=== PATIENT | female | born 1965 | race Caucasian/White ===

== ENCOUNTER 2022-11-07 17:01 | Emergency (ER) | payer MEDICARE, MEDICAID, SELFPAY ==
--- NOTE | 2022-11-07 17:56 | ED.ABDPAIN ---
HPI - Abdominal Pain General Stated Complaint: abd pain Related Data Allergies Allergy/AdvReac Type Severity Reaction Status Date / Time morphine [MORPHINE] Allergy Intermediate INVOLUNTARY Unverified 05/21/20 14:46 SPASMS
== END 2022-11-07 18:25 | disposition left against medical advice (07) ==
PROVIDERS: Emergency Provider Emergency Medicine; PCP Physician Assistant
DX: R10.9 Unspecified abdominal pain (principal)

== ENCOUNTER 2023-07-15 10:05 | Emergency (ER) | payer MEDICARE, MEDICAID, SELFPAY ==
--- NOTE | ~2023-07-15 | CT_ITS ---
EXAMINATION: CT ABDOMEN AND PELVIS WITHOUT CONTRAST CLINICAL INFORMATION: Flank pain. COMPARISON: None available. TECHNIQUE: Multidetector volumetric imaging was performed from the superior aspect of the liver through the pubic symphysis. Sagittal and coronal reformatted images were obtained on the technologist's workstation. This CT examination was performed using dose optimization techniques as appropriate, variously including the following: *Automated exposure control *Adjustment of mA and/or kV according to patient size (this includes techniques or standardized protocols for targeted exams where dose is matched to indication/reason for exam; i.e. extremities or head) *Use of iterative reconstruction technique DLP: 536 mGy-cm FINDINGS: LUNG BASES: The lung bases appear clear, with no evidence of inflammation or nodules. LIVER, GALLBLADDER, AND BILIARY TREE: The liver appears unremarkable in size, shape, and attenuation. No focal hepatic lesion or biliary ductal dilatation is appreciated. Unremarkable appearance of the gallbladder. PANCREAS: Unremarkable. SPLEEN: Spleen not visualized. Approximately 2 cm or less, homogeneous soft tissue density structures located roughly in the expected location of the splenic bed. ADRENAL GLANDS: Unremarkable KIDNEYS AND URETERS: The kidneys appear unremarkable in size, shape, and attenuation. No hydronephrosis, hydroureter, or calculi seen. BLADDER: Unremarkable GASTROINTESTINAL TRACT: Scattered colonic diverticula. Question mild induration of fat in the region of a sigmoid diverticulum (image 60, coronal series 7). No abscess identified. Normal-appearing distal ileum and vermiform appendix. PERITONEAL CAVITY: No free intracranial fluid or air identified. ABDOMINAL WALL: Approximately 1.2 cm left gluteal soft tissue density structure (image 69, series 3), possibly related to prior hypodermic injection. No significant hernia is appreciated. LYMPH NODES: No evidence of adenopathy by size criteria. VASCULAR: Unremarkable PELVIC VISCERA: Approximately 2.5 cm subserosal leiomyoma at the uterine fundus (image 73, series 3). OSSEOUS STRUCTURES: Bilateral spondylolysis at L5-S1 without evidence of spondylolisthesis. CT/CT abdomen pelvis wo IV con IMPRESSION: No evidence of urinary tract stone or hydronephrosis. Scattered colonic diverticula. Question mild induration of fat in the region of a sigmoid diverticulum, equivocal. Cannot confirm or exclude early or mild diverticulitis. Suspect splenosis. Additional findings, as above.
[2023-07-15 10:11] VITALS: BP 95/67; PULSE 87; RESP 17; TEMP 36.5; O2SAT 96; BMI 29.5
[2023-07-15 10:27] LABS: MANUAL DIFF FLAG NO
[2023-07-15 10:33] LABS: Appearance Urine Clear; Basophils Absolute Auto 0.1 X10*3/uL (0.0-0.2); Basophils Percent Auto 0.4 % (0-2); Color Urine Yellow; Eosinophils Absolute Auto 0.1 X10*3/uL (0.0-0.4); Eosinophils Percent Auto 0.4 % (0-4); Glucose Urine UA Negative (Negative); Hematocrit 40.7 % (37.0-47.0); Hemoglobin 13.2 g/dl (12.0-16.0); Imm Gran Abs Auto 0.04 X10*3/uL (0.00-0.03); Imm Gran Pct Auto 0.3 % (0.0-0.4); Leukocyte Esterase Urine Large (3+) (Negative); Lymphocytes Absolute Auto 3.3 X10*3/uL (1.2-4.9); Lymphocytes Percent Auto 22.9 % (20-40); Mean Corpuscular HGB Conc 32.4 g/dl (31.0-35.0); Mean Corpuscular Hemoglobin 29.7 pg (27.0-33.0); Mean Corpuscular Volume 91.7 fL (80.0-98.0); Mean Platelet Volume 11.5 fL (9.4-12.3); Monocytes Absolute Auto 1.4 X10*3/uL (0.1-1.2); Monocytes Percent Auto 9.8 % (2-11); Neutrophils Absolute Auto 9.4 x10*3/uL (2.0-8.3); Neutrophils Percent Auto 66.2 % (45-73); Nitrite Urine Negative (Negative); Platelet Count 301 X10*3/uL (160-400); Red Blood Count 4.44 X10*6/uL (4.20-5.50); Red Cell Distribution Width 14.6 % (11.0-16.0); UMIC TRIGGER UACC YES; Urine Blood Moderate (2+) (Negative); Urine Ketones Negative (Negative); Urine Protein Negative (Neg-Trace); White Blood Count 14.2 X10*3/uL (4.8-10.8)
[2023-07-15 10:35] LABS: Bacteria Urine None Seen (None Seen); Squamous Epithelial Cell Urine 0-2 /HPF (0-2); UACC Culture Trigger YES; WBC Urine >50 /HPF (0-5)
[2023-07-15 11:02] LABS: Alanine Aminotransferase 40 U/L (0-31); Albumin Level 4.1 g/dL (3.5-5.0); Alkaline Phosphatase 72 U/L (39-117); Anion Gap 10 (12-20); Aspartate Amino Transferase 39 U/L (5-31); Bilirubin Direct < 0.2 mg/dL (0.0-0.5); Bilirubin Total 0.2 mg/dL (0.0-1.0); Blood Urea Nitrogen 8 mg/dL (9-16); Calcium 10.4 mg/dL (8.4-10.2); Carbon Dioxide 25 mmol/L (22-29); Chloride 104 mmol/L (96-108); Creatinine Clr Calc Pharmacy 77.4; Estimated Glomerular Filt Rate > 60; Glucose Random 118 mg/dL (60-115); Lipase 38 U/L (8-78); Potassium 4.3 mmol/L (3.3-5.1); Sodium 135 mmol/L (135-145); Total Protein 7.2 g/dL (6.5-8.0)
--- NOTE | 2023-07-15 11:03 | ED.GENADULT ---
HPI - General Adult General Chief complaint: General Medical Stated complaint: vomiting Time Seen by Provider: 07/15/23 11:03 Source: patient Mode of arrival: ambulatory Limitations: no limitations History of Present Illness HPI narrative: Patient is a 57 year old assigned female at with no reported medical history presenting to the emergency department today with low back pain, nausea, vomiting, and diarrhea. Patient states that 3 days ago she started having low back pain, nausea, vomiting and diarrhea. Patient denies any dizziness, lightheadedness, abdominal pain, fever, chills, blurry vision, double vision, loss of vision, chest pain, difficulty breathing, shortness of breath, night sweats, pain with urination, increased urinary frequency, increased urinary urgency, blood in her urine or stool, syncope or a near syncopal episode, recent trauma or falls, bowel incontinence, bladder incontinence, bowel retention, bladder retention, or any other complaints at this time. Onset (ago): day(s) (3) Location: back Severity: mild Severity scale (1-10): 4 Quality: aching and dull Pain Consistency: constant Relieving factors: none Exacerbating factors: none Associated symptoms: nausea/vomiting Treatments prior to arrival: none Related Data Previous Rx's Medication Instructions Recorded amoxicillin 875 mg-potassium 1 tab PO BID 7 days #14 tabs 07/15/23 clavulanate 125 mg tablet loperamide 2 mg capsule (Imodium 2 mg PO QID PRN loose stool #7 caps 07/15/23 A-D) Allergies Allergy/AdvReac Type Severity Reaction Status Date / Time morphine [MORPHINE] Allergy Intermediate INVOLUNTARY Verified 07/15/23 11:58 SPASMS Review of Systems Constitutional: Constitutional: Reports no additional constitutional complaints, Denies chills, Denies fever(s) and Denies night sweats Eyes: Eyes: Reports no additional eye complaints, Denies blurry vision, Denies change in vision, Denies diplopia, Denies eye discharge, Denies loss of vision and Denies eye pain ENT: Denies dizziness Cardiovascular: Cardiovascular: Reports no additional cardiovascular complaints, Denies chest pain, Denies lightheadedness, Denies Loss of Consciousness and Denies dyspnea Respiratory: Respiratory: Reports no additional respiratory complaints and Denies dyspnea Gastrointestinal: Gastrointestinal: Reports no additional gastrointestinal complaints, Denies abdominal pain, Denies melena, Denies hematochezia, Denies change in bowel habits, Denies change in stool character, Reports diarrhea, Reports nausea and Reports vomiting Genitourinary: Genitourinary: Denies hematuria, Denies urinary frequency, Denies dysuria, Denies urinary incontinence, Denies urinary hesitancy and Denies urinary urgency Musculoskeletal: Musculoskeletal: Reports no additional musculoskeletal complaints, Reports back pain, Denies numbness and Denies tingling Neurologic: Denies dizziness, Denies loss of vision, Denies numbness and Denies tingling Psychiatric: Psychiatric: Reports no additional psychiatric complaints Endocrine: Endocrine: Reports no additional endocrine complaints Hematologic/Lymphatic: Hematologic/Lymphatic: Reports no additional hematologic/lymphatic complaints Allergic/Immunologic: Allergic/Immunologic: Reports no additional allergic/immunologic complaints PMFSH Past Medical History Attestation statement: The following information was validated with the patient. Source: old records reviewed and nursing notes reviewed Social History Social History Smoked in Last 30 Days: Yes Use of substances other than those prescribed or required for medical reasons: No Advance Directives: No Advance Directives Information Provided: No Patient : No Physical Exam ED Vital Signs: Vital Signs - 24 hr 07/15/23 10:11 07/15/23 12:56 Temperature 97.7 F 98.9 F Pulse Rate 87 75 Respiratory Rate 17 18 Blood Pressure 95/67 110/68 Pulse Oximetry 96 100 Oxygen Delivery Method Room Air Room Air BMI result Body Mass Index 29.5 Const General: cooperative, no acute distress, alert and awake Nutritional Appearance: well nourished Orientation/consciousness: patient oriented x3 Limitations: no limitations [facility] Head: Yes normal to inspection and Yes atraumatic Ears: hearing grossly normal bilaterally and external ears normal General nose exam: Normal external nose present, no nasal discharge noted and no epistaxis Face and sinus: Yes normal facial exam, No abrasion and No laceration Mouth: Normal oral and palatal mucosa present, no drooling and no muffled voice Eyes General: appearance normal, both eyes and all related structures Periorbital: periorbital findings normal Eyelids: Yes eyelids normal Conjunctivae: conjunctivae normal Pupils: Equal, round and reactive pupils present EOM: EOMs intact bilaterally Neck Neck: Yes normal visual inspection, Yes full ROM and Yes no lymphadenopathy Chest Chest palpation & inspection: normal inspection of the chest Resp Effort & Inspection: normal respiratory effort and able to speak in complete sentences Auscultation: clear to auscultation bilaterally Cardio Rate: regular rate Rhythm: regular rhythm GI Inspection: Yes normal to inspection Palpation (GI): Soft to palpation, not firm, nontender and no guarding Neuro General: patient oriented x3 and moves all extremities Cranial nerves: Yes Equal, round and reactive pupils present Cognition (Neuro): normal cognition Motor exam (neuro): 5/5 motor strength present throughout Sensory Exam: Normal double simultaneous stimulation for sensation Coordination: [id number] test normal Extrem General: Yes normal to inspection, Yes full ROM and Yes capillary refill normal Psych Appearance: grossly normal Mental Status: mental status grossly normal Affect: normal affect Attitude: cooperative Thought process: Normal thought process present Thought content: Normal thought content present Insight: Good insight present (Psych) Medications Administered Discontinued Medications Generic Name Dose Route Start Last Admin Trade Name Freq PRN Reason Stop Dose Admin Ketorolac Tromethamine 15 mg 07/15/23 11:46 07/15/23 12:01 Ketorolac Tromethamine 15 Mg/Ml Vial IM 07/15/23 11:47 15 mg ONCE ONE Administration Medical Decision Making Medical Decision Making [facility] Narrative: Patient is a 57 year old assigned female at with a history of splenectomy presenting to the emergency department today with low back pain, nausea, and diarrhea. Patient's physical exam was unremarkable. Patient's blood work showed an elevated WBC count of 14.2 but were otherwise unremarkable. Patient's urine showed evidence of a UTI. Patient's abdomen/pelvis CT showed possible early diverticulitis and a uterine fibroid. I explained my physical exam findings as well as all test results to the patient. I answered all questions asked by the patient. I stressed the importance of the patient taking her medication as prescribed. I stressed the importance of the patient following up with her primary care provider and an OBGYN. I stressed the importance of the patient returning to the emergency department immediately if her symptoms were to worsen or if she were to develop any dizziness, shortness of breath, difficulty breathing, chest pain, blurry vision, loss of vision, nausea, vomiting, abdominal pain, fever, chills, back pain, or any other complaints. Patient verbalized agreement and understanding with this treatment plan and discharge. Differential Diagnosis Differential Diagnoses: The differential diagnosis associated with the presentation includes UTI Diverticulitis Admission/Observation Consideration of admission/observation: Escalation of care including admission/observation considered Patient would have been admitted to the hospital had her work up had any findings where hospital admission was appropriate and her clinical presentation warranted hospital admission. Lab Data [facility] Lab Attestation statement: I reviewed the patient's lab results. My interpretation of these results are in the [facility] Rationale portion of this note. 07/15/23 10:22 07/15/23 10:22 Labs: Lab Results 07/15/23 07/15/23 Range/Units 10:22 11:16 WBC 14.2 H (4.8-10.8) X10*3/uL RBC 4.44 (4.20-5.50) X10*6/uL Hgb 13.2 (12.0-16.0) g/dl Hct 40.7 (37.0-47.0) % MCV 91.7 (80.0-98.0) fL MCH 29.7 (27.0-33.0) pg MCHC 32.4 (31.0-35.0) g/dl RDW 14.6 (11.0-16.0) % Plt Count 301 (160-400) X10*3/uL MPV 11.5 (9.4-12.3) fL Immature Gran % (Auto) 0.3 (0.0-0.4) % Neut % (Auto) 66.2 (45-73) % Lymph % (Auto) 22.9 (20-40) % [place] % (Auto) 9.8 (2-11) % Eos % (Auto) 0.4 (0-4) % Baso % (Auto) 0.4 (0-2) % Lymph # (Auto) 3.3 (1.2-4.9) X10*3/uL [place] # (Auto) 1.4 H (0.1-1.2) X10*3/uL Eos # (Auto) 0.1 (0.0-0.4) X10*3/uL Baso # (Auto) 0.1 (0.0-0.2) X10*3/uL Abs Immat Gran (auto) 0.04 H (0.00-0.03) X10*3/uL Absolute Neuts (auto) 9.4 H (2.0-8.3) x10*3/uL Absolute Nucleated RBC 0.000 (0.0-0.012) X10*3/uL Nucleated RBC % (auto) 0.0 (0.0-0.2) /100WBC Sodium 135 (135-145) mmol/L Potassium 4.3 (3.3-5.1) mmol/L Chloride 104 (96-108) mmol/L Carbon Dioxide 25 (22-29) mmol/L Anion Gap 10 L (12-20) BUN 8 L (9-16) mg/dL Creatinine 0.84 (0.5-1.4) mg/dL Estim Creat Clear Calc 77.4 Estimated GFR > 60 Random Glucose 118 H (60-115) mg/dL Calcium 10.4 H (8.4-10.2) mg/dL Total Bilirubin 0.2 (0.0-1.0) mg/dL Direct Bilirubin < 0.2 (0.0-0.5) mg/dL AST 39 H (5-31) U/L ALT 40 H (0-31) U/L Alkaline Phosphatase 72 (39-117) U/L Total Protein 7.2 (6.5-8.0) g/dL Albumin 4.1 (3.5-5.0) g/dL Lipase 38 (8-78) U/L Urine Color Yellow Urine Appearance Clear Urine pH 6.0 (5.0-9.0) Ur Specific [place] 1.010 (1.005-1.025) Urine Protein Negative (Neg-Trace) mg/dL Urine Glucose (UA) Negative (Negative) mg/dL Urine Ketones Negative (Negative) mg/dL Urine Blood Moderate (2+) H (Negative) Urine Nitrite Negative (Negative) Ur Leukocyte Esterase Large (3+) H (Negative) Urine RBC 11-20 H (0-2) /HPF Urine WBC >50 H (0-5) /HPF Ur Squamous Epith Cells 0-2 (0-2) /HPF Urine Bacteria None Seen (None Seen) Hyaline Casts 3-5 (0-2) /LPF Influenza Type A (PCR) NEGATIVE (Negative) Influenza Type B (PCR) NEGATIVE (Negative) RSV RNA Qual (PCR) NEGATIVE (Negative) SARS-CoV-2 RNA (RT-PCR) NEGATIVE (Negative) Independent Interpretation I performed an independent interpretation of an: CT Scan Interpretation: My interpretation is in agreement with the radiologist's impression of this imaging study. EXAMINATION: CT ABDOMEN AND PELVIS WITHOUT CONTRAST CLINICAL INFORMATION: Flank pain. COMPARISON: None available. TECHNIQUE: Multidetector volumetric imaging was performed from the superior aspect of the liver through the pubic symphysis. Sagittal and coronal reformatted images were obtained on the technologist's workstation. This CT examination was performed using dose optimization techniques as appropriate, variously including the following: *Automated exposure control *Adjustment of mA and/or kV according to patient size (this includes techniques or standardized protocols for targeted exams where dose is matched to indication/reason for exam; i.e. extremities or head) *Use of iterative reconstruction technique DLP: 536 mGy-cm FINDINGS: LUNG BASES: The lung bases appear clear, with no evidence of inflammation or nodules. LIVER, GALLBLADDER, AND BILIARY TREE: The liver appears unremarkable in size, shape, and attenuation. No focal hepatic lesion or biliary ductal dilatation is appreciated. Unremarkable appearance of the gallbladder. PANCREAS: Unremarkable. SPLEEN: Spleen not visualized. Approximately 2 cm or less, homogeneous soft tissue density structures located roughly in the expected location of the splenic bed. ADRENAL GLANDS: Unremarkable KIDNEYS AND URETERS: The kidneys appear unremarkable in size, shape, and attenuation. No hydronephrosis, hydroureter, or calculi seen. BLADDER: Unremarkable GASTROINTESTINAL TRACT: Scattered colonic diverticula. Question mild induration of fat in the region of a sigmoid diverticulum (image 60, coronal series 7). No abscess identified. Normal-appearing distal ileum and vermiform appendix. PERITONEAL CAVITY: No free intracranial fluid or air identified. ABDOMINAL WALL: Approximately 1.2 cm left gluteal soft tissue density structure (image 69, series 3), possibly related to prior hypodermic injection. No significant hernia is appreciated. LYMPH NODES: No evidence of adenopathy by size criteria. VASCULAR: Unremarkable PELVIC VISCERA: Approximately 2.5 cm subserosal leiomyoma at the uterine fundus (image 73, series 3). OSSEOUS STRUCTURES: Bilateral spondylolysis at L5-S1 without evidence of spondylolisthesis. CT/CT abdomen pelvis wo IV con IMPRESSION: No evidence of urinary tract stone or hydronephrosis. Scattered colonic diverticula. Question mild induration of fat in the region of a sigmoid diverticulum, equivocal. Cannot confirm or exclude early or mild diverticulitis. Suspect splenosis. Additional findings, as above. Dictated By: Luis Aldana signed By: Electronically signed by Luis Aldana 07/15/23 0396 Radiology Impression Discussion of test interpretation with radiology: I have reviewed the radiologist's reading. Prescription Management I considered prescription management with: Antibiotic (patient prescribed Augmentin to cover diverticulitis + UTI) Discharge Plan Discharge Clinical Impression: Urinary tract infection, Nausea & vomiting, Diarrhea Patient Disposition: Home, Self-Care Instructions: Urinary Tract Infection in Women (DC), Acute Nausea and Vomiting (ED), Acute Diarrhea (ED) Additional Instructions: Follow up with your primary care provider and an OBGYN to discuss your uterine fibroid finding on CT scan. Return to the emergency department immediately if your symptoms worsen or if you develop any dizziness, shortness of breath, difficulty breathing, chest pain, blurry vision, loss of vision, nausea, vomiting, abdominal pain, fever, chills, back pain, or any other complaints. Prescriptions: New amoxicillin-pot clavulanate 875-125 mg tablet 1 tab PO BID 7 Days Qty: 14 0RF loperamide [Imodium A-D] 2 mg capsule 2 mg PO QID PRN (Reason: loose stool) Qty: 7 0RF Referrals: [facility] [Provider Group] (Call to establish and follow up with a primary care provider. If you already have a primary care provider, please follow up with them.) [facility] [Provider Group] (Call to establish and follow up with a primary care provider. If you already have a primary care provider, please follow up with them.) [facility] [Provider Group] (Call to establish and follow up with a primary care provider. If you already have a primary care provider, please follow up with them.) Brooks Winter MD [Physician] - (Call to establish and follow up with an OBGYN for uterine fibroids. ) Interventions: ED Discharge Assessment Last Done: 07/15/23 13:46 Discharge Date/Time: 07/15/23 13:48 Print Language: Korean
--- OUTSIDE RECORDS SUMMARY | 2023-07-15 11:35 | XMS_ITS | Continuity of Care Document ---
Author Name Unknown Organization [facility] J[address] lt Address [address] [place] [address]- Care Team Providers Care Clinical Secretary Name Role Phone Watson AVILA, Audrey Alanis Primary Care Physician [phone] Encounter [facility] Date(s): 10/14/22 - 11/13/22 [facility] Adult [address] [place] [address]- Attending Physician: Lamberto Coats Admitting Physician: AdmtrLamberto Referring Physician: Admtr, Lamberto Allergies, Adverse Reactions, Alerts Substance Reaction Severity Status morphine Active Immunizations Given and Recorded Vaccine Date Status Refusal Reason Diphtheria/Tet/Pertussis, Acel (oldterm) 10/25/18 Given Measles/Mumps/Rubella Virus Vaccine 1 04/19/16 Giv en diphtheria/tetanus/pertussis, acel(DTaP) 2 02/21/12 Given Hepatitis A Adult Vaccine 3 02/21/12 Given pneumococcal 23-valent vaccine 4 05/12/11 Given tetanus/diphtheria/pertussis, acel(Tdap) 05/12/11 Recorded Not Given Vaccine Date Status Refusal Reason Influenza Virus Vaccine (oldterm) 08/03/21 Not Giv en Patient Refuses 1Result Comment: [04/19/2016] Given with Sterile diluent lot [id number] Exp [id number] 2Admin Note: [facility] 3Admin Note: [facility] 4Admin Note: [facility] Medications clonazePAM 0.5 mg oral tablet 1 tablet = 0.5 mg, By Mouth, 3 times a day, # 90 tablet, 0 Refills, Maintenance, 07/11/22 11:10:00 EST, Tablet, [facility] #[id number], Partial fill upon patient request if the prescription is for a schedule II opioid drug., 164, cm, 07/11/22 10:... Start Date: 07/11/22 Status: Ordered lithium 300 mg oral tablet 1 tablet = 300 mg, By Mouth, 3 times a day, # 90 tablet, 0 Refills, Maintenance, 07/11/22 11:13:00 EST, Tablet, [facility] #[id number], Partial fill upon patient request if the prescription is for a schedule II opioid drug., 164, cm, 07/11/22 10:... Start Date: 07/11/22 Status: Ordered lithium 600 mg oral capsule See Instructions, 1 capsule daily, 0 Refills, Maintenance, 03/28/22 9:27:00 EDT, Partial fill upon patient request if the prescription is for a schedule II opioid drug. Start Date: 03/28/22 Status: Ordered valACYclovir 500 mg oral tablet 500 mg, 1, tablet, By Mouth, Daily, # 12 tablet, Refills 3, Tot. 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 Lupus erythematosus Confirmed 11/27/08 Active Posttraumatic stress disorder Confirmed Active Social History Social History Type Response Smoking Status Current every day yusra [place] entered on: 01/01/15 Sex Note * Event Display: EKG Non BH Authored Date: * Event Display: Non BH Lab Results Authored Date: * Event Display: Non BH Lab Results Authored Date: * Event Display: Non BH Lab Results Authored Date: * Event Display: Radiology Result Scanned Authored Date: * Event Display: Radiology Result Scanned Authored Date: * Event Display: Non BH Radiology Results Authored Date: Patient Care team information Care Team Personnel Name: Watson AVILA, Audrey Alanis Position: [facility] PCO Associate Professional Member Role: PCP Address: Address: [address] [place] [id number] Care Team Related Persons Name: LORENA WONG Address: [address] [address] Name: MALIK ECHEVERRIA Address: [place] [address] Name: MALIK ECHEVERRIA Address: [place] [address]
--- OUTSIDE RECORDS SUMMARY | 2023-07-15 11:35 | XMS_ITS | Continuity of Care Document ---
Author Name Unknown Organization [facility] [address] Address [address] [place] [address]- Care Team Providers Care Insulation Extruder Operator Name Role Phone Watson AVILA, Audrey Alanis [id number] Adult [address] [place] [address]- Encounter Diagnosis Hyperlipidemia(Discharge Diagnosis) - 07/11/22 Bipolar disorder(Discharge Diagnosis) - 07/11/22 Attending Physician: Audrey Chaudhari NP Referring Physician: Jenifer SCHAEFFER, Suman Allen Allergies, Adverse Reactions, Alerts Substance Reaction Severity [...] Comment: [04/19/2016] Given with Sterile diluent lot [id number] Exp [id number] 2Admin Note: [facility] 3Admin Note: [facility] 4Admin Note: [facility] Medications clonazePAM 0.5 mg oral tablet 1 tablet = 0.5 mg, By Mouth, 3 times a day, # 90 tablet, 0 Refills, Maintenance, 07/11/22 11:10:00 EST, Tablet, [facility] #[id number], Partial fill upon patient request if the prescription is for a schedule II opioid drug., 164, cm, 07/11/22 10:... Start Date: 07/11/22 Status: Ordered lithium 300 mg oral tablet 1 tablet = 300 mg, By Mouth, 3 times a day, # 90 tablet, 0 Refills, Maintenance, 07/11/22 11:13:00 EST, Tablet, [facility] #[id number], Partial fill upon patient request if the [...] 04/28/20 9:38:00 EDT, Route to Pharmacy Electronically, [facility] #[id number], 164, cm, 06/05/19 10:50:00 EDT, Height Start Date: 04/28/20 Status: Ordered Problem List Condition Confirmation Course Effective Dates Status H ealth Status Informant Benzodiazepine dependence Confirmed Active Bipolar disorder Confirmed Active Cigarette smoker Confirmed 11/27/08 Active History of - splenectomy Confirmed 11/27/08 Active Hyperlipidemia Confirmed Active 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 Lupus erythematosus Confirmed 11/27/08 Active Posttraumatic stress disorder Confirmed Active Diagnosis Diagnosis Type Effective Dates Health Status Clinical Service Informant Hyperlipidemia Discharge Diagnosis 07/11/22 Bipolar disorder Discharge Diagnosis 07/11/22 Vital Signs Most recent to oldest [Reference Range]: 1 Height 164.0 cm (07/11/22 10:56 AM) Weight 75.5 kg (07/11/22 10:56 AM) Oxygen Saturation [94-100 %] 100 % (07/11/22 10:56 AM) Pulse Rate [55-90 bpm] 78 bpm (07/11/22 10:56 AM) Body Mass Index [18.5-24.99 kg/m2] 28.07 kg/m2 *H* (07/11/22 10:56 AM) Blood Pressure [90-138/55-84 mm Hg] 97/5 3mm Hg (07/11/22 10:56 AM) Blood pressure sites Arm, right (07/11/22 10:56 AM) Weight Obtained Via Standing scale (07/11/22 10:56 AM) Social History Social History Type Response Smoking Status Current every day yusra [place] entered on: 01/01/15 Sex Patient Care team information Care Team Personnel Name: Watson AVILA, Audrey Alanis Position: S PCO Associate Professional Member Role: PCP Address: Address: [address] [place] [phone]- Care Team Related Persons Name: LORENA WONG Address: [place] [address] [place] [id number] Name: MALIK ECHEVERRIA Address: [place] [address] Name: MALIK ECHEVERRIA Address: [place] [address]
--- OUTSIDE RECORDS SUMMARY | 2023-07-15 11:35 | XMS_ITS | Continuity of Care Document ---
Author Name Unknown Organization [facility] Address [address] [place] [address]- Care Team Providers Care Business Analyst Manager Name Role Phone Rissa SCHAEFFER, Jaguar Huber Primary Care Physician [facility]counter [facility] Date(s): 11/26/19 - 12/06/19 [facility] [address] [place] [address]- [facility] Attending Physician: AdmLamberto lam Admitting Physician: Admtr, ArSultana Referring Physician: Admtr, ArSultana Allergies, Adverse Reactions, Alerts Substance Reaction Severity Status morphine Active Immunizations Given and Recorded Vaccine Date Status Refusal Reason Diphtheria/Tet/Pertussis, Acel (oldterm) 10/25/18 Given Measles/Mumps/Rubella Virus Vaccine 1 04/19/16 Giv en diphtheria/tetanus/pertussis, acel(DTaP) 2 02/21/12 Given Hepatitis A Adult Vaccine 3 02/21/12 Given pneumococcal 23-valent vaccine 4 05/12/11 Given 1Result Comment: [04/19/2016] Given with Sterile diluent lot [id number] Exp [id number] 2Admin Note: [facility] 3Admin Note: [facility] 4Admin Note: [facility] Medications clonazepam 0.5 mg oral tablet 1 tablet = 0.5 mg, By Mouth, Daily at bedtime, PRN Anxiety, 0 Refills, Maintenance, 11/12/13 12:11:27, Tablet Start Date: 11/12/13 Status: Ordered Depakote Capsule 125 mg, By Mouth, 3 times a day, Maintenance, 11/12/13 12:11:15 Start Date: 11/12/13 Status: Ordered Hydroxychloroquine = 200 mg, By Mouth, Daily, 0 Refills, Maintenance, 11/26/19 15:29:00 EDT Start Date: 11/26/19 Status: Ordered [place] By Mouth, Maintenance, 11/12/13 12:10:57 Start Date: 11/12/13 Status: Ordered Nasonex 50 mcg/inh nasal spray 2 sprays, Nares, Both, Daily, # 1 each, 11 Refills, Maintenance, 06/05/19 11:12:57 EDT, [place], 2 sprays Nares, Both Daily,x30 days Start Date: 06/05/19 Stop Date: 05/30/20 Status: Ordered sertraline 50 mg oral tablet 0 Refills, Maintenance, 06/05/19 10:53:51 EDT Start Date: 06/05/19 Status: Ordered Problem List Condition Effective Dates Status Health Status Inform ant Bipolar disorder(Confirmed) Active Cigarette smoker(Confirmed) 11/27/08 Active History of - splenectomy(Confirmed) 11/27/08 Active ITP(Confirmed) 11/27/08 Active Lupus erythematosus(Confirmed) 11/27/08 Active Posttraumatic stress disorder(Confirmed) Active Social History Social History Type Response Smoking Status Current every day yusra canada entered on: 01/01/15 Sex
--- OUTSIDE RECORDS SUMMARY | 2023-07-15 11:35 | XMS_ITS | Continuity of Care Document ---
Author Name Unknown Organization [facility] Jefry lt Address [address] [place] [address]- Care Team Providers Care Secondary Art Teacher Name Role Phone Watson AVILA, Audrey Alanis Primary Care Physician Encounter [facility] Date(s): 05/26/23 - 06/25/23 [facility] Adult [address] [place] [address]- Allergies, Adverse Reactions, Alerts Substance Reaction Severity Status morphine Active Immunizations Given and Recorded Vaccine Date Status Refusal Reason Diphtheria/Tet/Pertussis, Acel (oldterm) 10/25/18 Given Measles/Mumps/Rubella Virus Vaccine 1 04/19/16 Giv en diphtheria/tetanus/pertussis, acel(DTaP) 2 02/21/12 Given Hepatitis A Adult Vaccine 3 02/21/12 Given pneumococcal 23-valent vaccine 4 05/12/11 Given tetanus/diphtheria/pertussis, acel(Tdap) 05/12/11 Recorded 1Result Comment: [04/19/2016] Given with Sterile diluent lot [id number] Exp [id number] 2Admin Note: [facility] 3Admin Note: [facility] 4Admin Note: [facility] Medications clonazePAM 0.5 mg oral tablet 1 tablet = 0.5 mg, By Mouth, 3 times a day, # 90 tablet, 0 Refills, Maintenance, 07/11/22 11:10:00 EST, Tablet, [facility] #[id number], Partial fill upon patient request if the prescription is for a schedule II opioid drug., 164, cm, 07/11/22 10:... Start Date: 07/11/22 Status: Ordered lithium 300 mg oral tablet 1 tablet = 300 mg, By Mouth, 3 times a day, # 90 tablet, 0 Refills, Maintenance, 07/11/22 11:13:00 EST, Tablet, [facility] #[id number], Partial fill upon patient request if the [...] 04/28/20 9:38:00 EDT, Route to Pharmacy Electronically, [facility] #[id number], 164, cm, 06/05/19 10:50:00 EDT, Height Start [...] Personnel Name: Watson AVILA, Audrey Alanis Position: [facility] PCO Associate Professional Member Role: PCP Address: Address: [address] [place] [id number] Care Team Related Persons Name: LORENA WONG Address: home [address] [place] [address] Name: MALIK ECHEVERRIA Address: home [place], [place] Name: MALIK ECHEVERRIA Address: [place], [place]
--- OUTSIDE RECORDS SUMMARY | 2023-07-15 11:35 | XMS_ITS | Continuity of Care Document ---
Author Name Unknown Organization [facility] Jef[facility] lt Address [address] [place] [address]- Care Team Providers Care Before School Babysitter Name Role Phone Watson AVILA, Audrey Alanis Primary Care Physician [phone] Encounter [facility] [place] Date(s): 07/11/22 - 08/10/22 [facility] Adult [address] [place] [address]- Attending Physician: Lamberto Coats Admitting Physician: Lamberto Cotas Referring Physician: AdmtrLamberto Allergies, Adverse Reactions, Alerts Substance Reaction Severity [...] Comment: [04/19/2016] Given with Sterile diluent lot [id number] Exp [id number] 2Admin Note: [facility] 3Admin Note: [facility] 4Admin Note: [facility] Medications clonazePAM 0.5 mg oral tablet 1 tablet = 0.5 mg, By Mouth, 3 times a day, # 90 tablet, 0 Refills, Maintenance, 07/11/22 11:10:00 EST, Tablet, [facility] #[id number], Partial fill upon patient request if the prescription is for a schedule II opioid drug., 164 cm, 07/11/22 10:... Start Date: 07/11/22 Status: Ordered lithium 300 mg oral tablet 1 tablet = 300 mg, By Mouth, 3 times a day, # 90 tablet, 0 Refills, Maintenance, 07/11/22 11:13:00 EST, Tablet, [facility] #[id number], Partial fill upon patient request if the prescription is for a schedule II opioid drug., 164 cm, 07/11/22 10:... Start Date: 07/11/22 Status: [...] 04/28/20 9:38:00 EDT, Route to Pharmacy Electronically, [facility] #[id number], neelima Jj, 06/05/19 10:50:00 EDT, Height Start Date: 04/28/20 [...] Type Response Smoking Status Current every day jesicamya entered on: 01/01/15 Sex Note * Event Display: EKG Non BH Authored Date: * Event Display: Non BH Lab Results Authored Date: * Event Display: Non BH Lab Results Authored Date: * Event Display: Non BH Lab Results Authored Date: * Event Display: Radiology Result Scanned Authored Date: * Event Display: Radiology Result Scanned Authored Date: * Event Display: Non Radiology Results Authored Date: Patient Care team information Care Team Personnel Name: Watson AVILA, Audrey Alanis Position: [facility] PCO Associate Professional Member Role: PCP Address: Address: [address] [place] [address]- Care Team Related Persons Name: KAMALJITLORENA GARCIA Address: [address] [address] Name: MALIK ECHEVERRIA Address: [place] [address] Name: MALIK ECHEVERRIA Address: [place] [address]
--- OUTSIDE RECORDS SUMMARY | 2023-07-15 11:35 | XMS_ITS | Continuity of Care Document ---
Author Name Unknown Organization [facility] Jefry lt Address [address] [place] [address]- Care Team Providers Care Beam Dyer Recessed Vat Name Role Phone Rissa SCHAEFFER, Jaguar Huber Primary Care Physician [phone] Encounter [facility] Date(s): 08/20/20 - 09/19/20 [facility] Adult [address] [place] [address]- Allergies, Adverse Reactions, Alerts Substance Reaction Severity Status morphine Active Immunizations Given and Recorded Vaccine Date Status Refusal Reason Diphtheria/Tet/Pertussis, Acel (oldterm) 10/25/18 Given Measles/Mumps/Rubella Virus Vaccine 1 04/19/16 Giv en diphtheria/tetanus/pertussis, acel(DTaP) 2 02/21/12 Given Hepatitis A Adult Vaccine 3 02/21/12 Given pneumococcal 23-valent vaccine 4 05/12/11 Given 1Result Comment: [04/19/2016] Given with Sterile diluent lot [id number] Exp [id number] 2Admin Note: [facility] 3Admin Note: [facility] 4Admin Note: [facility] Medications clonazepam 0.5 mg oral tablet 1 [...] 15:29:00 EDT Start Date: 11/26/19 Status: Ordered [place] By Mouth, Maintenance, 11/12/13 12:10:57 Start Date: 11/12/13 Status: Ordered Nasonex 50 mcg/inh nasal spray 2 sprays, Nares, Both, Daily, # 1 each, 11 Refills, Maintenance, 06/05/19 11:12:57 EDT, [place], 2 sprays Nares, Both Daily,x30 days Start Date: 06/05/19 Stop Date: 05/30/20 Status: Ordered nicotine 14 mg/24 hr transdermal film, extended release 1 patch, Topically, Daily, # 30 patch, 1 Refills, Maintenance, 09/02/20 17:00:00 EST, Patch, [facility] #[id number], 1 patch Topically Daily,x30 days, 164, cm, 06/05/19 10:50:00 EDT, Height Start Date: 09/02/20 Stop Date: 11/01/20 Status: Ordered nicotine 2 mg oral transmucosal lozenge 1 lozenge = 2 mg, By Mouth, Every 2 hours, # 504 lozenge, 0 Refills, Maintenance, 09/02/20 17:00:00EST, [facility] #[id number], Partial fill upon patient request if the prescription is for a schedule II opioid drug., 1 lozenge By Mouth Every 2 h... Start Date: 09/02/20 Stop Date: 10/14/20 Status: Ordered sertraline 50 mg oral tablet 0 Refills, Maintenance, 06/05/19 10:53:51 EDT Start Date: 06/05/19 Status: Ordered valACYclovir 500 mg oral tablet 500 mg, 1, tablet, By Mouth, Daily, # 12 tablet, Refills 3, Tot. Refills 3, Maintenance, 04/28/20 9:38:00 EDT, Route to Pharmacy Electronically, [facility] #[id number], 164, cm, 06/05/19 10:50:00 EDT, Height Start Date: 04/28/20 Status: Ordered Problem List Condition Effective Dates Status Health Status Inform ant Bipolar disorder(Confirmed) Active Cigarette smoker(Confirmed) 11/27/08 Active History of - splenectomy(Confirmed) 11/27/08 Active ITP(Confirmed) 11/27/08 Active Lupus erythematosus(Confirmed) 11/27/08 Active Posttraumatic stress disorder(Confirmed) Active Social History Social History Type Response Smoking Status Current every day yusra canada entered on: 01/01/15 Sex
--- OUTSIDE RECORDS SUMMARY | 2023-07-15 11:35 | XMS_ITS | Continuity of Care Document ---
Author Name Unknown Organization [facility]ef[facility] Address [address] [place] [address]- Care Team Providers Care Surgical Nurse Practitioner Name Role Phone Watson AVILA, Audrey Alanis Primary Care Physician [place] [facility] [place] Date(s): 04/06/22 - 04/13/22 [facility] Adult [address] [place] [address]- Encounter Diagnosis Hyperlipidemia(Discharge Diagnosis) - 04/06/22 COVID-19(Discharge Diagnosis) - 04/06/22 Benzodiazepine dependence(Discharge Diagnosis) - 04/06/22 Attending Physician: Ramy Del Rosario MD Referring Physician: Watson AVILA, Audrey Alanis Allergies, Adverse Reactions, Alerts Substance Reaction Severity [...] Comment: [04/19/2016] Given with Sterile diluent lot [id number] Exp [id number] 2Admin Note: [facility] 3Admin Note: [facility] 4Admin Note: [facility] Medications atorvastatin 20 mg oral tablet 1 tablet = 20 mg, By Mouth, Daily, # 30 tablet, 3 Refills, Maintenance, 04/06/22 8:24:00 EDT, Tablet, [facility] #[id number], Partial fill upon patient request if the prescription is for a schedule II opioid drug., 164, cm, 03/28/22 9:07:00 EDT,... Start Date: 04/06/22 Status: Ordered clonazePAM 0.5 mg oral tablet 1 tablet = 0.5 mg, By Mouth, 3 times a day, # 90 tablet, 2 Refills, Maintenance, 08/03/21 11:36:00 EST, Tablet, [facility] #[id number], Partial fill upon patient request if the prescription is for a schedule II opioid drug., 164, cm, 08/03/21 10:... Start Date: 08/03/21 Status: Ordered lithium 600 mg oral capsule See Instructions, 1 capsule daily, 0 Refills, Maintenance, 03/28/22 9:27:00 EDT, Partial fill upon patient request if the prescription is for a schedule II opioid drug. Start Date: 03/28/22 Status: Ordered Paxlovid 150 mg-100 mg (150 mg-100 mg Dose) oral tablet See Instructions, take as directed on package reduce clonazepam dose by 1/2 while taking medicationno kidney impairment, # 30 capsule, 0 Refills, Maintenance, 04/06/22 8:24:00 EDT, [facility] #[id number], Partial fill upon patient request... Start Date: 04/06/22 Status: Ordered valACYclovir 500 mg oral tablet 500 mg, 1, tablet, By Mouth, Daily, # 12 tablet, Refills 3, Tot. Refills 3, Maintenance, 04/28/20 9:38:00 EDT, Route to Pharmacy Electronically, [facility] #[id number], 164neelima, 06/05/19 10:50:00 EDT, Height Start Date: 04/28/20 Status: Ordered Problem List Condition Effective Dates Status Health Status Inform ant Benzodiazepine dependence(Confirmed) Active Bipolar disorder(Confirmed) Active Cigarette smoker(Confirmed) 11/27/08 Active History of - splenectomy(Confirmed) 11/27/08 Active Hyperlipidemia(Confirmed) Active ITP(Confirmed) 11/27/08 Active Lupus erythematosus(Confirmed) 11/27/08 Active Posttraumatic stress disorder(Confirmed) Active Diagnosis Diagnosis Type Effective Dates Health Status Clinical Service Informant Hyperlipidemia Discharge Diagnosis 04/06/22 COVID-19 Discharge Diagnosis 04/06/22 Benzodiazepine dependence Discharge Diagnosis 04/06/22 Social History Social History Type Response Smoking Status Current every day yusra canada entered on: 01/01/15 Sex
--- OUTSIDE RECORDS SUMMARY | 2023-07-15 11:35 | XMS_ITS | Continuity of Care Document ---
Author Name Unknown Organization [facility] Jefry lt Address [address] [place] [address]- Care Team Providers Care Head Transfer Clerk Name Role Phone Watson AVILA, Audrey Alanis Primary Care Physician [facility]counter [facility] Date(s): 10/11/22 - 11/10/22 [facility] Adult [address] [place] [address]- Allergies, Adverse Reactions, Alerts Substance Reaction Severity [...] Comment: [04/19/2016] Given with Sterile diluent lot [id number] Exp [id number] 2Admin Note: [facility] 3Admin Note: [facility] 4Admin Note: [facility] Medications clonazePAM 0.5 mg oral tablet 1 tablet = 0.5 mg, By Mouth, 3 times a day, # 90 tablet, 0 Refills, Maintenance, 07/11/22 11:10:00 EST, Tablet, [facility] #[id number], Partial fill upon patient request if the prescription is for a schedule II opioid drug., 164, cm, 07/11/22 10:... Start Date: 07/11/22 Status: Ordered lithium 300 mg oral tablet 1 tablet = 300 mg, By Mouth, 3 times a day, # 90 tablet, 0 Refills, Maintenance, 07/11/22 11:13:00 EST, Tablet, [facility] #[id number], Partial fill upon patient request if the prescription is for a schedule II opioid drug., 164, cm, 07/11/22 10:... Start Date: 07/11/22 Status: Ordered lithium 600 mg oral capsule See Instructions, 1 capsule daily, 0 Refills, Maintenance, 03/28/22 9:27:00 EDT, Partial fill upon patient request if the prescription is for a schedule II opioid drug. Start Date: 03/28/22 Status: Ordered nicotine 2 mg oral transmucosal gum 1 each = 2 mg, Chew, Every 2 hours, PRN as needed for smoking cessation, # 160 each, 1 Refills, Acute 11/11/22 9:15:00 EST, 10/14/22 9:15:00 EST, Gum, [facility] #[id number], Partial fill upon patient request if the prescription is for a schedule... Start Date: 10/14/22 Stop Date: 11/11/22 Status: Ordered valACYclovir 500 mg oral tablet 500 mg, 1, tablet, By Mouth, Daily, # 12 tablet, Refills 3, Tot. Refills 3, Maintenance, 04/28/20 9:38:00 EDT, Route to Pharmacy Electronically, [facility] #[id number], 164, cm, 06/05/19 10:50:00 EDT, Height Start [...] Care team information Care Team Personnel Name: Audrey Chaudhari NP Position: S PCO Associate Professional Member Role: PCP Address: Address: [address] [place] [id number]- [place] Care Team Related Persons Name: LORENA WONG Address: home [address] [place] [address] Name: MALIK ECHEVERRIA Address: [place] [address] Name: MALIK ECHEVERRIA Address: [place] [address]
--- OUTSIDE RECORDS SUMMARY | 2023-07-15 11:35 | XMS_ITS | Continuity of Care Document ---
Author Name Unknown Organization [facility] Jefry lt Address [address] [place] [address]- Care Team Providers Care Wood Heel Flap Trimmer Name Role Phone Watson AVILA, Audrey Alanis Primary Care Physician [phone] Encounter [facility] [place] Date(s): 04/06/22 - 05/06/22 [facility] Adult [address] [place] [address]- Attending Physician: Admtr, Lamberto Admitting Physician: Admtr, Lamberto Referring Physician: Admtr, Ar8 Allergies, Adverse Reactions, Alerts Substance Reaction Severity [...] Comment: [04/19/2016] Given with Sterile diluent lot [id number] Exp [id number] 2Admin Note: [facility] 3Admin Note: [facility] 4Admin Note: [facility] Medications atorvastatin 20 mg oral tablet 1 tablet = 20 mg, By Mouth, Daily, # 30 tablet, 3 Refills, Maintenance, 04/06/22 8:24:00 EDT, Tablet, [facility] #[id number], Partial fill upon patient request if the prescription is for a schedule II opioid drug., 164, cm, 03/28/22 9:07:00 EDT,... Start Date: 04/06/22 Status: Ordered clonazePAM 0.5 mg oral tablet 1 tablet = 0.5 mg, By Mouth, 3 times a day, # 90 tablet, 2 Refills, Maintenance, 08/03/21 11:36:00 EST, Tablet, [facility] #[id number], Partial fill upon patient request if the [...] capsule, 0 Refills, Maintenance, 04/06/22 8:24:00 EDT, [facility] #[id number], Partial fill upon patient request... Start Date: 04/06/22 Status: Ordered valACYclovir 500 mg oral tablet 500 mg, 1, tablet, By Mouth, Daily, # 12 tablet, Refills 3, Tot. Refills 3, Maintenance, 04/28/20 9:38:00 EDT, Route to Pharmacy Electronically, [facility] #[id number], 164, cm, 06/05/19 10:50:00 EDT, Height Start [...] day yusra canada entered on: 01/01/15 Sex Care Team Personnel Name: Audrey Chaudhari NP Address: [address] [place] [address] [place] [address]- [place]
--- OUTSIDE RECORDS SUMMARY | 2023-07-15 11:35 | XMS_ITS | Continuity of Care Document ---
Author Name Unknown Organization [facility] Address [address] [facility] [place] [address]- Care Team Providers Care Supervisor Soldering Name Role Phone Watson AVILA, Audrey Alanis Primary Care Physician [phone] Encounter 04/18/22 - 04/25/22 [facility] [address], [facility] [address] [place], [place] [address] Attending Physician: Watson AVILA, Audrey Alanis Admitting Physician: Audrey Chaudhari NP Referring Physician: Watson AVILA, Audrey Alanis Allergies, [...] Comment: [04/19/2016] Given with Sterile diluent lot [id number] Exp [id number] 2Admin Note: [facility] 3Admin Note: [facility] 4Admin Note: [facility] Medications atorvastatin 20 mg oral tablet 1 tablet = 20 mg, By Mouth, Daily, # 30 tablet, 3 Refills, Maintenance, 04/06/22 8:24:00 EDT, Tablet, [facility] #[id number], Partial fill upon patient request if the prescription is for a schedule II opioid drug., 164, cm, 03/28/22 9:07:00 EDT,... Start Date: 04/06/22 Status: Ordered clonazePAM 0.5 mg oral tablet 1 tablet = 0.5 mg, By Mouth, 3 times a day, # 90 tablet, 2 Refills, Maintenance, 08/03/21 11:36:00 EST, Tablet, [facility] #[id number], Partial fill upon patient request if the [...] capsule, 0 Refills, Maintenance, 04/06/22 8:24:00 EDT, [facility] #[id number], Partial fill upon patient request... Start Date: 04/06/22 Status: Ordered valACYclovir 500 mg oral tablet 500 mg, 1, tablet, By Mouth, Daily, # 12 tablet, Refills 3, Tot. Refills 3, Maintenance, 04/28/20 9:38:00 EDT, Route to Pharmacy Electronically, [facility] #[id number], 164, neelima, 06/05/19 10:50:00 EDT, Height Start Date: 04/28/20 [...]
--- OUTSIDE RECORDS SUMMARY | 2023-07-15 11:35 | XMS_ITS | Continuity of Care Document ---
Author Name Unknown Organization [facility] Address [address] [place] [id number]- Care Team Providers Care Scrap Sawyer Name Role Phone Watson AVILA, Audrey Alanis Primary Care Physician Encounter [facility] [place] Date(s): 03/28/22 - 04/04/22 [facility] Adult [address] [place] [address]- Encounter Diagnosis Medicare annual wellness visit, subsequent(Discharge Diagnosis) - 03/28/22 Bipolar disorder(Discharge Diagnosis) - 03/28/22 Benzodiazepine dependence(Discharge Diagnosis) - 03/28/22 Lupus erythematosus(Discharge Diagnosis) - 03/28/22 Dental infection(Discharge Diagnosis) - 03/28/22 Attending Physician: Audrey Chaudhari NP Allergies, Adverse Reactions, Alerts Substance Reaction Severity [...] Comment: [04/19/2016] Given with Sterile diluent lot [id number] Exp [id number] 2Admin Note: [facility] 3Admin Note: [facility] 4Admin Note: [facility] Medications amoxicillin 500 mg oral capsule 1 capsule = 500 mg, By Mouth, 3 times a day, for 10 days, # 30 capsule, 0 Refills, Acute 04/07/22 10:16:00 EDT, 03/28/22 10:16:00 EDT, [facility] #[id number], Partial fill upon patient request if the prescription is for a schedule II opioid drug.... Start Date: 03/28/22 Stop Date: 04/07/22 Status: Ordered clonazePAM 0.5 mg oral tablet 1 tablet = 0.5 mg, By Mouth, 3 times a day, # 90 tablet, 2 Refills, Maintenance, 08/03/21 11:36:00 EST, Tablet, [facility] #[id number], Partial fill upon patient request if the [...] 04/28/20 9:38:00 EDT, Route to Pharmacy Electronically, [facility] #[id number], 164, cm, 06/05/19 10:50:00 EDT, Height Start Date: 04/28/20 Status: Ordered Problem List Condition Effective Dates Status Health Status Inform ant Benzodiazepine dependence(Confirmed) Active Bipolar disorder(Confirmed) Active Cigarette smoker(Confirmed) 11/27/08 Active History of - splenectomy(Confirmed) 11/27/08 Active Hyperlipidemia(Confirmed) Active ITP(Confirmed) 11/27/08 Active Lupus erythematosus(Confirmed) 11/27/08 Active Posttraumatic stress disorder(Confirmed) Active Diagnosis Diagnosis Type Effective Dates Health Status Clinical Service Informant Medicare annual wellness visit, subsequent Discharge Diagnosis 03/28/22 Bipolar disorder Discharge Diagnosis 03/28/22 Benzodiazepine dependence Discharge Diagnosis 03/28/22 Lupus erythematosus Discharge Diagnosis 03/28/22 Dental infection Discharge Diagnosis 03/28/22 Vital Signs Most recent to oldest [Reference Range]: 1 Height 164.0 cm (03/28/22 9:07 AM) Weight 75.6 kg (03/28/22 9:07 AM) Oxygen Saturation [94-100 %] 97 % (03/28/22 9:07 AM) Pulse Rate [55-90 bpm] 68 bpm (03/28/22 9:07 AM) Body Mass Index [18.5-24.99] 28.11 *H* (03/28/22 9:07 AM) Blood Pressure [90-138/55-84 mm Hg] 85/5 9mm Hg *L* (03/28/22 9:07 AM) Temperature [96.8-100.4 DegF] 97.7 DegF (03/28/22 9:07 AM) Blood pressure sites Arm, right (03/28/22 9:07 AM) Temperature Route Temporal (03/28/22 9:07 AM) Weight Obtained Via Standing scale (03/28/22 9:07 AM) Social History Social History Type Response Smoking Status Current every day yusra canada entered on: 01/01/15 Sex
--- OUTSIDE RECORDS SUMMARY | 2023-07-15 11:36 | XMS_ITS | Continuity of Care Document ---
Author Name Unknown Organization [facility] Darell Jefry lt Address [address] [place] [address]- Care Team Providers Care Ore Tester Name Role Phone Jaguar Kwok MD Primary Care Physician [facility]counter [facility] Date(s): 08/03/21 - 09/02/21 [facility] Adult [address] [place] [address]- Attending Physician: Lamberto Coats Admitting Physician: Admtr, Lamberto Referring Physician: Admtr, Ar8 Allergies, Adverse Reactions, Alerts Substance Reaction Severity Status morphine Active Immunizations Given and Recorded Vaccine Date Status Refusal Reason Diphtheria/Tet/Pertussis, Acel (oldterm) 10/25/18 Given Measles/Mumps/Rubella Virus Vaccine 1 04/19/16 Giv en diphtheria/tetanus/pertussis, acel(DTaP) 2 02/21/12 Given Hepatitis A Adult Vaccine 3 02/21/12 Given pneumococcal 23-valent vaccine 4 05/12/11 Given Not Given Vaccine Date Status Refusal Reason Influenza Virus Vaccine (oldterm) 08/03/21 Not Giv en Patient Refuses 1Result Comment: [04/19/2016] Given with Sterile diluent lot [id number] Exp [id number] 2Admin Note: [facility] 3Admin Note: [facility] 4Admin Note: [facility] Medications buPROPion 150 mg/24 hours (XL) oral tablet, extended release 1 tablet = 150 mg, By Mouth, Every 24 hours, # 90 tablet, 3 Refills, Maintenance, 08/03/21 11:26:00EST, ER Tablet, [facility][id number], Partial fill upon patient request if the prescription is for a schedule II opioid drug., 1 tablet By Mouth... Start Date: 08/03/21 Status: Ordered clonazePAM 0.5 mg oral tablet 1 tablet = 0.5 mg, By Mouth, 3 times a day, # 90 tablet, 2 Refills, Maintenance, 08/03/21 11:36:00 EST, Tablet, [facility] #[id number], Partial fill upon patient request if the prescription is for a schedule II opioid drug., 164, cm, 08/03/21 10:... Start Date: 08/03/21 Status: Ordered nicotine 2 mg oral transmucosal lozenge 1 lozenge = 2 mg, By Mouth, Every 2 hours, # 504 lozenge, 0 Refills, Maintenance, 09/02/20 17:00:00EST, [facility] #[id number], Partial fill upon patient request if the prescription is for a schedule II opioid drug., 1 lozenge By Mouth Every 2 h... Start Date: 09/02/20 Stop Date: 10/14/20 Status: Ordered valACYclovir 500 mg oral tablet 500 mg, 1, tablet, By Mouth, Daily, # 12 tablet, Refills 3, Tot. Refills 3, Maintenance, 04/28/20 9:38:00 EDT, Route to Pharmacy Electronically, [facility] #[id number], 164, cm, 06/05/19 10:50:00 EDT, Height Start [...]
--- OUTSIDE RECORDS SUMMARY | 2023-07-15 11:36 | XMS_ITS | Continuity of Care Document ---
Author Name Unknown Organization [facility] Jefry lt Address [address] [place] [address]- Care Team Providers Care Banking Attorney Name Role Phone Watson AVILA, Audrey Alanis Primary Care Physician [phone] [place] [facility] [place]/28/22 [facility] Adult [address] [place] [address]- Allergies, Adverse Reactions, Alerts Substance Reaction Severity [...] Comment: [04/19/2016] Given with Sterile diluent lot [id number] Exp [id number] 2Admin Note: [facility] 3Admin Note: [facility] 4Admin Note: [facility] Medications atorvastatin 20 mg oral tablet 1 tablet = 20 mg, By Mouth, Daily, # 30 tablet, 3 Refills, Maintenance, 04/06/22 8:24:00 EDT, Tablet, [facility] #[id number], Partial fill upon patient request if the prescription is for a schedule II opioid drug., 164, cm, 03/28/22 9:07:00 EDT,... Start Date: 04/06/22 Status: Ordered clonazePAM 0.5 mg oral tablet 1 tablet = 0.5 mg, By Mouth, 3 times a day, # 90 tablet, 2 Refills, Maintenance, 08/03/21 11:36:00 EST, Tablet, [facility] #[id number], Partial fill upon patient request if the [...] capsule, 0 Refills, Maintenance, 04/06/22 8:24:00 EDT, [facility] #[id number], Partial fill upon patient request... Start Date: 04/06/22 Status: Ordered valACYclovir 500 mg oral tablet 500 mg, 1, tablet, By Mouth, Daily, # 12 tablet, Refills 3, Tot. Refills 3, Maintenance, 04/28/20 9:38:00 EDT, Route to Pharmacy Electronically, [facility] #[id number], 164, cm, 06/05/19 10:50:00 EDT, Height Start [...] Team Personnel Name: Audrey Chaudhari NP Address: [address] [place] [id number]
--- OUTSIDE RECORDS SUMMARY | 2023-07-15 11:36 | XMS_ITS | Continuity of Care Document ---
Author Name [facility] Address [address] [place] [address]- Care Team Providers Care Associate Buyer Name Role Phone Watson AVILA, Audrey Alanis Primary Care Physician [facility] Date(s): 01/05/22 - 02/04/22 [facility] Adult [address] [place], [place] [address] Allergies, Adverse Reactions, Alerts Substance Reaction Severity [...] Comment: [04/19/2016] Given with Sterile diluent lot [id number] Exp [id number] 2Admin Note: [facility] 3Admin Note: [facility] 4Admin Note: [facility] Medications buPROPion 150 mg/24 hours (XL) oral tablet, extended release 1 tablet = 150 mg, By Mouth, Every 24 hours, # 90 tablet, 3 Refills, Maintenance, 08/03/21 11:26:00EST, ER Tablet, [facility] #[id number], Partial fill upon patient request if the prescription is for a schedule II opioid drug., 1 tablet By Mouth... Start Date: 08/03/21 Status: Ordered clonazePAM 0.5 mg oral tablet 1 tablet = 0.5 mg, By Mouth, 3 times a day, # 90 tablet, 2 Refills, Maintenance, 08/03/21 11:36:00 EST, Tablet, [facility] #[id number], Partial fill upon patient request if the prescription is for a schedule II opioid drug., 164, cm, 08/03/21 10:... Start Date: 08/03/21 Status: Ordered nicotine 2 mg oral transmucosal lozenge 1 lozenge = 2 mg, By Mouth, Every 2 hours, # 504 lozenge, 0 Refills, Maintenance, 09/02/20 17:00:00EST, [facility] #[id number], Partial fill upon patient request if the prescription is for a schedule II opioid drug., 1 lozenge By Mouth Every 2 h... Start Date: 09/02/20 Stop Date: 10/14/20 Status: Ordered valACYclovir 500 mg oral tablet 500 mg, 1, tablet, By Mouth, Daily, # 12 tablet, Refills 3, Tot. Refills 3, Maintenance, 04/28/20 9:38:00 EDT, Route to Pharmacy Electronically, [facility] #[id number], 164, cm, 06/05/19 10:50:00 EDT, Height Start [...]
--- OUTSIDE RECORDS SUMMARY | 2023-07-15 11:36 | XMS_ITS | Continuity of Care Document ---
Author Name Unknown Organization [facility] [place] Address [address] [facility], [address] [place] [address]- Care Team Providers Care Legal Manager Name Role Phone Watson AVILA, Audrey Alanis Primary Care Physician Encounter 01/07/22 - 02/23/22 [facility] [address], [address] [place], [place] [address] Attending Physician: Annmarie Akers NP Admitting Physician: Annmarie Akers NP Referring Physician: Annmarie Akers NP Allergies, Adverse Reactions, Alerts Substance Reaction [...] Comment: [04/19/2016] Given with Sterile diluent lot [id number] Exp [id number] 2Admin Note: [facility] 3Admin Note: [facility] 4Admin Note: [facility] Medications buPROPion 150 mg/24 hours (XL) oral tablet, extended release 1 tablet = 150 mg, By Mouth, Every 24 hours, # 90 tablet, 3 Refills, Maintenance, 08/03/21 11:26:00EST, ER Tablet, [facility] #[id number], Partial fill upon patient request if the prescription is for a schedule II opioid drug., 1 tablet By Mouth... Start Date: 08/03/21 Status: Ordered clonazePAM 0.5 mg oral tablet 1 tablet = 0.5 mg, By Mouth, 3 times a day, # 90 tablet, 2 Refills, Maintenance, 08/03/21 11:36:00 EST, Tablet, [facility] #[id number], Partial fill upon patient request if the prescription is for a schedule II opioid drug., 164, cm, 08/03/21 10:... Start Date: 08/03/21 Status: Ordered nicotine 2 mg oral transmucosal lozenge 1 lozenge = 2 mg, By Mouth, Every 2 hours, # 504 lozenge, 0 Refills, Maintenance, 09/02/20 17:00:00EST, [facility] #[id number], Partial fill upon patient request if the prescription is for a schedule II opioid drug., 1 lozenge By Mouth Every 2 h... Start Date: 09/02/20 Stop Date: 10/14/20 Status: Ordered valACYclovir 500 mg oral tablet 500 mg, 1, tablet, By Mouth, Daily, # 12 tablet, Refills 3, Tot. Refills 3, Maintenance, 04/28/20 9:38:00 EDT, Route to Pharmacy Electronically, [facility] #[id number], 164, cm, 06/05/19 10:50:00 EDT, Height Start [...]
--- OUTSIDE RECORDS SUMMARY | 2023-07-15 11:36 | XMS_ITS | Continuity of Care Document ---
Author Name Unknown Organization [facility] Jefry lt Address [address] [place] [address]- Care Team Providers Care Research Executive Name Role Phone Watson AVILA, Audrey Alanis Primary Care Physician [place] [facility] [place] 10/14/22 - 10/21/22 [facility] Adult [address] [place] [address]- Encounter Diagnosis Hyperlipidemia(Discharge Diagnosis) - 10/14/22 Tobacco abuse(Discharge Diagnosis) - 10/14/22 Iron excess(Discharge Diagnosis) - 10/14/22 Attending Physician: Watson AVILA, Audrey Alanis Allergies, Adverse [...] Comment: [04/19/2016] Given with Sterile diluent lot [id number] Exp [id number] 2Admin Note: [facility] 3Admin Note: [facility] 4Admin Note: [facility] Medications clonazePAM 0.5 mg oral tablet 1 tablet = 0.5 mg, By Mouth, 3 times a day, # 90 tablet, 0 Refills, Maintenance, 07/11/22 11:10:00 EST, Tablet, [facility] #[id number], Partial fill upon patient request if the prescription is for a schedule II opioid drug., 164, cm, 07/11/22 10:... Start Date: 07/11/22 Status: Ordered lithium 300 mg oral tablet 1 tablet = 300 mg, By Mouth, 3 times a day, # 90 tablet, 0 Refills, Maintenance, 07/11/22 11:13:00 EST, Tablet, [facility] #[id number], Partial fill upon patient request if the [...] 11/11/22 9:15:00 EST, 10/14/22 9:15:00 EST, Gum, [facility] #[id number], Partial fill upon patient request if the prescription is for a schedule... Start Date: 10/14/22 Stop Date: 11/11/22 Status: Ordered valACYclovir 500 mg oral tablet 500 mg, 1, tablet, By Mouth, Daily, # 12 tablet, Refills 3, Tot. Refills 3, Maintenance, 04/28/20 9:38:00 EDT, Route to Pharmacy Electronically, [facility] #[id number], 164, cm, 06/05/19 10:50:00 EDT, Height Start [...] Diagnosis Diagnosis Type Effective Dates Health Status [facility] Service Informant Hyperlipidemia Discharge Diagnosis 10/14/22 Tobacco abuse Discharge Diagnosis 10/14/22 Iron excess Discharge Diagnosis 10/14/22 Vital Signs Most recent to oldest [Reference Range]: 1 Height 164.0 cm (10/14/22 9:05 AM) Social History Social History Type Response Smoking Status Current every day yusra canada entered on: 01/01/15 Sex Patient Care team information Care Team Personnel Name: Watson AVILA, Audrey Alanis Position: S PCO Associate Professional Member Role: PCP Address: Address: [address] [place] [address] Care Team Related Persons Name: LORENA WONG Address: [address] [address] Name: MALIK ECHEVERRIA Address: [place] [address] Name: MALIK ECHEVERRIA Address: [place] [address]
--- OUTSIDE RECORDS SUMMARY | 2023-07-15 11:36 | XMS_ITS | Continuity of Care Document ---
Author Name Unknown Organization [facility] Jefry lt Address [address] [place] [address]- Care Team Providers Care Director Of Acquisition Marketing Name Role Phone Jaguar Kwok MD Primary Care Physician En[place] [facility] [place] Date(s): 11/26/19 - 12/03/19 [facility] Adult [address] [place] [address]- [facility] Encounter Diagnosis Respiratory illness(Discharge Diagnosis) - 11/26/19 Attending Physician: Jaguar Kwok MD Allergies, Adverse Reactions, Alerts Substance Reaction Severity Status morphine Active Immunizations Given and Recorded Vaccine Date Status Refusal Reason Diphtheria/Tet/Pertussis, Acel (oldterm) 10/25/18 Given Measles/Mumps/Rubella Virus Vaccine 1 04/19/16 Giv en diphtheria/tetanus/pertussis, acel(DTaP) 2 02/21/12 Given Hepatitis A Adult Vaccine 3 02/21/12 Given pneumococcal 23-valent vaccine 4 05/12/11 Given 1Result Comment: [04/19/2016] Given with Sterile diluent lot [id number] Exp [id number] 2Admin Note: [facility] 3Admin Note: [facility] 4Admin Note: [facility] Medications clonazepam 0.5 mg oral tablet [...] 15:29:00 EDT Start Date: 11/26/19 Status: Ordered [place] By Mouth, Maintenance, 11/12/13 12:10:57 Start Date: 11/12/13 Status: Ordered Nasonex 50 mcg/inh nasal spray 2 sprays, Nares, Both, Daily, # 1 each, 11 Refills, Maintenance, 06/05/19 11:12:57 EDT, [place], 2 sprays Nares, Both Daily,x30 days Start [...] Effective Dates Health Status Clinical Service Informant Respiratory illness Discharge Diagnosis 11/26/19 Social History Social History Type Response Smoking Status Current every day yusra [place]ada entered on: 01/01/15 Sex
--- OUTSIDE RECORDS SUMMARY | 2023-07-15 11:36 | XMS_ITS | Continuity of Care Document ---
Author Name Unknown Organization [facility] Darell Jefry lt Address [address] [place] [address]- Care Team Providers Care Ultimate Hoops Scoreboard Operator Name Role Phone Jaguar Kwok MD Primary Care Physician Encounter [facility] [place] Date(s): 01/15/21 - 01/22/21 [facility] Adult [address] [place] [address]- Encounter Diagnosis Lupus erythematosus(Discharge Diagnosis) - 01/15/21 General medical exam(Discharge Diagnosis) - 01/15/21 Cigarette smoker(Discharge Diagnosis) - 01/15/21 Bipolar disorder(Discharge Diagnosis) - 01/15/21 ITP(Discharge Diagnosis) - 01/15/21 Attending Physician: Jaguar Kwok MD Allergies, Adverse Reactions, Alerts Substance Reaction Severity Status morphine Active Immunizations Given and Recorded Vaccine Date Status Refusal Reason Diphtheria/Tet/Pertussis, Acel (oldterm) 10/25/18 Given Measles/Mumps/Rubella Virus Vaccine 1 04/19/16 Giv en diphtheria/tetanus/pertussis, acel(DTaP) 2 02/21/12 Given Hepatitis A Adult Vaccine 3 02/21/12 Given pneumococcal 23-valent vaccine 4 05/12/11 Given 1Result Comment: [04/19/2016] Given with Sterile diluent lot [id number] Exp [id number] 2Admin Note: [facility] 3Admin Note: [facility] 4Admin Note: [facility] Medications clonazepam 0.5 mg oral tablet 1 tablet = 0.5 mg, By Mouth, Daily at bedtime, PRN Anxiety, 0 Refills, Maintenance, 11/12/13 12:11:27, Tablet Start Date: 11/12/13 Status: Ordered doxycycline hyclate 100 mg oral capsule 2 capsule = 200 mg, By Mouth, Once, # 2 capsule, 0 Refills, Soft Stop, 01/15/21 11:35:00 EDT, Capsule, [facility] #[id number], Partial fill upon patient request if the prescription is for a schedule II opioid drug., 164, cm, 01/15/21 11:11:00 EDT... Start Date: 01/15/21 Status: Ordered [place] By Mouth, Maintenance, 11/12/13 12:10:57 Start Date: 11/12/13 Status: Ordered nicotine 2 mg oral transmucosal lozenge 1 lozenge = 2 mg, By Mouth, Every 2 hours, # 504 lozenge, 0 Refills, Maintenance, 09/02/20 17:00:00EST, [facility] #[id number], Partial fill upon patient request if the prescription is for a schedule II opioid drug., 1 lozenge By Mouth Every 2 h... Start Date: 09/02/20 Stop Date: 10/14/20 Status: Ordered valACYclovir 500 mg oral tablet 500 mg, 1, tablet, By Mouth, Daily, # 12 tablet, Refills 3, Tot. Refills 3, Maintenance, 04/28/20 9:38:00 EDT, Route to Pharmacy Electronically, [facility] #[id number], 164, cm, 06/05/19 10:50:00 EDT, Height Start Date: 04/28/20 Status: Ordered Problem List Condition Effective Dates Status Health Status Inform ant Bipolar disorder(Confirmed) Active Cigarette smoker(Confirmed) 11/27/08 Active History of - splenectomy(Confirmed) 11/27/08 Active ITP(Confirmed) 11/27/08 Active Lupus erythematosus(Confirmed) 11/27/08 Active Posttraumatic stress disorder(Confirmed) Active Diagnosis Diagnosis Type Effective Dates Health Status Clinical Service Informant Bipolar disorder Discharge Diagnosis 01/15/21 ITP Discharge Diagnosis 01/15/21 Cigarette smoker Discharge Diagnosis 01/15/21 Lupus erythematosus Discharge Diagnosis 01/15/21 General medical exam Discharge Diagnosis 01/15/21 Vital Signs Most recent to oldest [Reference Range]: 1 Height 164.0 cm (01/15/21 11:11 AM) Weight 73.8 kg (01/15/21 11:11 AM) Oxygen Saturation [94-100 %] 97 % (01/15/21 11:11 AM) Pulse Rate [55-90 bpm] 88 bpm (01/15/21 11:11 AM) Body Mass Index [18.5-24.99] 27.44 *H* (01/15/21 11:11 AM) Blood Pressure [90-138/55-84 mm Hg] 104/ 62mm Hg (01/15/21 11:11 AM) Mode of Delivery (Oxygen) Room air (01/15/21 11:11 AM) Blood pressure sites Arm, left (01/15/21 11:11 AM) Weight Obtained Via Standing scale (01/15/21 11:11 AM) Social History Social History Type Response Smoking Status Current every day yusra canada entered on: 01/01/15 Sex
--- OUTSIDE RECORDS SUMMARY | 2023-07-15 11:36 | XMS_ITS | Continuity of Care Document ---
Author Name Unknown Organization [facility] [place] [address] [facility], [address] [place] [address]- Care Team Providers Care Jar Capper Name Role Phone Jaguar Kwok MD Primary Care Physician Encounter 01/25/21 - 03/13/21 [facility] [address], [facility] [address] [place], [place] [address] Attending Physician: Jaguar Kwok MD Admitting Physician: Jaguar Kwok MD Referring Physician: Jaguar Kwok MD Allergies, Adverse Reactions, Alerts Substance Reaction Severity Status morphine Active Immunizations Given and Recorded Vaccine Date Status Refusal Reason Diphtheria/Tet/Pertussis, Acel (oldterm) 10/25/18 Given Measles/Mumps/Rubella Virus Vaccine 1 04/19/16 Giv en diphtheria/tetanus/pertussis, acel(DTaP) 2 02/21/12 Given Hepatitis A Adult Vaccine 3 02/21/12 Given pneumococcal 23-valent vaccine 4 05/12/11 Given 1Result Comment: [04/19/2016] Given with Sterile diluent lot [id number] Exp [id number] 2Admin Note: [facility] 3Admin Note: [facility] 4Admin Note: [facility] Medications clonazepam 0.5 mg oral tablet 1 tablet = 0.5 mg, By Mouth, Daily at bedtime, PRN Anxiety, 0 Refills, Maintenance, 11/12/13 12:11:27, Tablet Start Date: 11/12/13 Status: Ordered doxycycline hyclate 100 mg oral capsule 2 capsule = 200 mg, By Mouth, Once, # 2 capsule, 0 Refills, Soft Stop, 01/15/21 11:35:00 EDT, Capsule, [facility][id number], Partial fill upon patient request if the prescription is for a schedule II opioid drug., 164, cm, 01/15/21 11:11:00 EDT... Start Date: 01/15/21 Status: Ordered [place] By Mouth, Maintenance, 11/12/13 12:10:57 Start Date: 11/12/13 Status: Ordered nicotine 2 mg oral transmucosal lozenge 1 lozenge = 2 mg, By Mouth, Every 2 hours, # 504 lozenge, 0 Refills, Maintenance, 09/02/20 17:00:00EST, [facility] #[id number], Partial fill upon patient request if the prescription is for a schedule II opioid drug., 1 lozenge By Mouth Every 2 h... Start Date: 09/02/20 Stop Date: 10/14/20 Status: Ordered valACYclovir 500 mg oral tablet 500 mg, 1, tablet, By Mouth, Daily, # 12 tablet, Refills 3, Tot. Refills 3, Maintenance, 04/28/20 9:38:00 EDT, Route to Pharmacy Electronically, [facility] #[id number], 164, cm, 06/05/19 10:50:00 EDT, Height Start [...]
--- OUTSIDE RECORDS SUMMARY | 2023-07-15 11:36 | XMS_ITS | Continuity of Care Document ---
Author Name Unknown Organization [facility] Jefry lt Address [address] [place] [address]- Care Team Providers Care Exercise Science Internship Name Role Phone Jaguar Kwok MD Primary Care Physician [place] [facility] [place]/03[place]21 - 08/10/21 [facility] Adult [address] [place] [address]- Encounter Diagnosis Bipolar disorder(Discharge Diagnosis) - 08/03/21 Posttraumatic stress disorder(Discharge Diagnosis) - 08/03/21 Benzodiazepine dependence(Discharge Diagnosis) - 08/03/21 Attending Physician: Jaguar Kwok MD Allergies, Adverse [...] Comment: [04/19/2016] Given with Sterile diluent lot [id number] Exp [id number] 2Admin Note: [facility] 3Admin Note: [facility] 4Admin Note: [facility] Medications buPROPion 150 mg/24 hours (XL) oral tablet, extended release 1 tablet = 150 mg, By Mouth, Every 24 hours, # 90 tablet, 3 Refills, Maintenance, 08/03/21 11:26:00EST, ER Tablet, [facility] #[id number], Partial fill upon patient request if the prescription is for a schedule II opioid drug., 1 tablet By Mouth... Start Date: 08/03/21 Status: Ordered clonazePAM 0.5 mg oral tablet 1 tablet = 0.5 mg, By Mouth, 3 times a day, # 90 tablet, 2 Refills, Maintenance, 08/03/21 11:36:00 EST, Tablet, [facility] #[id number], Partial fill upon patient request if the prescription is for a schedule II opioid drug., 164, cm, 08/03/21 10:... Start Date: 08/03/21 Status: Ordered nicotine 2 mg oral transmucosal lozenge 1 lozenge = 2 mg, By Mouth, Every 2 hours, # 504 lozenge, 0 Refills, Maintenance, 09/02/20 17:00:00EST, [facility] #[id number], Partial fill upon patient request if the prescription is for a schedule II opioid drug., 1 lozenge By Mouth Every 2 h... Start Date: 09/02/20 Stop Date: 10/14/20 Status: Ordered valACYclovir 500 mg oral tablet 500 mg, 1, tablet, By Mouth, Daily, # 12 tablet, Refills 3, Tot. Refills 3, Maintenance, 04/28/20 9:38:00 EDT, Route to Pharmacy Electronically, [facility] #[id number], 164, cm, 06/05/19 10:50:00 EDT, Height Start Date: 04/28/20 Status: Ordered Problem List Condition Effective Dates Status Health Status Inform ant Benzodiazepine dependence(Confirmed) Active Bipolar disorder(Confirmed) Active Cigarette smoker(Confirmed) 11/27/08 Active History of - splenectomy(Confirmed) 11/27/08 Active ITP(Confirmed) 11/27/08 Active Lupus erythematosus(Confirmed) 11/27/08 Active Posttraumatic stress disorder(Confirmed) Active Diagnosis Diagnosis Type Effective Dates Health Status Clinical Service Informant Bipolar disorder Discharge Diagnosis 08/03/21 Posttraumatic stress disorder Discharge Diagnosis 08/03/21 Benzodiazepine dependence Discharge Diagnosis 08/03/21 Vital Signs Most recent to oldest [Reference Range]: 1 Height 164.0 cm (08/03/21 10:58 AM) Weight 75.6 kg (08/03/21 10:58 AM) Oxygen Saturation [94-100 %] 97 % (08/03/21 10:58 AM) Pulse Rate [55-90 bpm] 78 bpm (08/03/21 10:58 AM) Body Mass Index [18.5-24.99] 28.11 *H* (08/03/21 10:58 AM) Blood Pressure [90-138/55-84 mm Hg] 93/5 2mm Hg (08/03/21 10:58 AM) Temperature [96.8-100.4 DegF] 98.1 DegF (08/03/21 10:58 AM) Mode of Delivery (Oxygen) Room air (08/03/21 10:58 AM) Blood pressure sites Arm, left (08/03/21 10:58 AM) Temperature Route Oral (08/03/21 10:58 AM) Weight Obtained Via Standing scale (08/03/21 10:58 AM) Social History Social History Type Response Smoking Status Current every day yusra [place]ada entered on: 01/01/15 Sex
--- OUTSIDE RECORDS SUMMARY | 2023-07-15 11:36 | XMS_ITS | Continuity of Care Document ---
Author Name Unknown Organization [facility] Jefry lt Address [address] [place] [address]- Care Team Providers Care Net Developer Architect Name Role Phone Jaguar Kwok MD Primary Care Physician [facility] Date(s): 01/15/21 - 02/14/21 [facility] [address] [place] [address]- Attending Physician: AdmLamberto lam Admitting Physician: Admtr, Lamberto Referring Physician: Admtr, [...] Comment: [04/19/2016] Given with Sterile diluent lot [id number] Exp [id number] 2Admin Note: [facility] 3Admin Note: [facility] 4Admin Note: [facility] Medications clonazepam 0.5 mg oral tablet 1 tablet = 0.5 mg, By Mouth, Daily at bedtime, PRN Anxiety, 0 Refills, Maintenance, 11/12/13 12:11:27, Tablet Start Date: 11/12/13 Status: Ordered doxycycline hyclate 100 mg oral capsule 2 capsule = 200 mg, By Mouth, Once, # 2 capsule, 0 Refills, Soft Stop, 01/15/21 11:35:00 EDT, Capsule, [facility] #[id number], Partial fill upon patient request if the prescription is for a schedule II opioid drug., 164, cm, 01/15/21 11:11:00 EDT... Start Date: 01/15/21 Status: Ordered [place] By Mouth, Maintenance, 11/12/13 12:10:57 Start Date: 11/12/13 Status: Ordered nicotine 2 mg oral transmucosal lozenge 1 lozenge = 2 mg, By Mouth, Every 2 hours, # 504 lozenge, 0 Refills, Maintenance, 09/02/20 17:00:00EST, [facility] #[id number], Partial fill upon patient request if the prescription is for a schedule II opioid drug., 1 lozenge By Mouth Every 2 h... Start Date: 09/02/20 Stop Date: 10/14/20 Status: Ordered valACYclovir 500 mg oral tablet 500 mg, 1, tablet, By Mouth, Daily, # 12 tablet, Refills 3, Tot. Refills 3, Maintenance, 04/28/20 9:38:00 EDT, Route to Pharmacy Electronically, [facility] #[id number], 164, cm, 06/05/19 10:50:00 EDT, Height Start [...]
--- OUTSIDE RECORDS SUMMARY | 2023-07-15 11:36 | XMS_ITS | Continuity of Care Document ---
Author Name Unknown Organization [facility] Jefry lt Address [address] [place] [address]- Care Team Providers Care Transportation Operations Manager Name Role Phone Rissa SCHAEFFER, Jaguar Huber Primary Care Physician [facility] Date(s): 04/27/20 - 05/27/20 [facility] [address] [place] [address]- [facility] Allergies, Adverse Reactions, Alerts Substance Reaction Severity Status morphine Active Immunizations Given and Recorded Vaccine Date Status Refusal Reason Diphtheria/Tet/Pertussis, Acel (oldterm) 10/25/18 Given Measles/Mumps/Rubella Virus Vaccine 1 04/19/16 Giv en diphtheria/tetanus/pertussis, acel(DTaP) 2 02/21/12 Given Hepatitis A Adult Vaccine 3 02/21/12 Given pneumococcal 23-valent vaccine 4 05/12/11 Given 1Result Comment: [04/19/2016] Given with Sterile diluent lot [id number] Exp [id number] 2Admin Note: [facility] 3Admin Note: [facility] 4Admin Note: [facility] Medications clonazepam 0.5 mg oral tablet [...] 15:29:00 EDT Start Date: 11/26/19 Status: Ordered [place] By Mouth, Maintenance, 11/12/13 12:10:57 Start Date: 11/12/13 Status: Ordered Nasonex 50 mcg/inh nasal spray 2 sprays, Nares, Both, Daily, # 1 each, 11 Refills, Maintenance, 06/05/19 11:12:57 EDT, [place], 2 sprays Nares, Both Daily,x30 days Start Date: 06/05/19 Stop Date: 05/30/20 Status: Ordered sertraline 50 mg oral tablet 0 Refills, Maintenance, 06/05/19 10:53:51 EDT Start Date: 06/05/19 Status: Ordered valACYclovir 500 mg oral tablet 500 mg, 1, tablet, By Mouth, Daily, # 12 tablet, Refills 3, Tot. Refills 3, Maintenance, 04/28/20 9:38:00 EDT, Route to Pharmacy Electronically, [facility] #[id number], 164, cm, 06/05/19 10:50:00 EDT, Height Start [...]
--- OUTSIDE RECORDS SUMMARY | 2023-07-15 11:36 | XMS_ITS | Continuity of Care Document ---
Author Name Unknown Organization [facility] Jefry lt Address [address] [place] [address]- Care Team Providers Care Commissioner Public Works Name Role Phone Rissa SCHAEFFER, Jaguar Huber Primary Care Physician [facility] Date(s): 11/24/20 - 12/24/20 [facility] [place] [address] [place] [address]- Allergies, Adverse Reactions, Alerts Substance Reaction Severity Status morphine Active Immunizations Given and Recorded Vaccine Date Status Refusal Reason Diphtheria/Tet/Pertussis, Acel (oldterm) 10/25/18 Given Measles/Mumps/Rubella Virus Vaccine 1 04/19/16 Giv en diphtheria/tetanus/pertussis, acel(DTaP) 2 02/21/12 Given Hepatitis A Adult Vaccine 3 02/21/12 Given pneumococcal 23-valent vaccine 4 05/12/11 Given 1Result Comment: [04/19/2016] Given with Sterile diluent lot [id number] Exp [id number] 2Admin Note: [facility] 3Admin Note: [facility] 4Admin Note: [facility] Medications clonazepam 0.5 mg oral tablet [...] 15:29:00 EDT Start Date: 11/26/19 Status: Ordered [place] By Mouth, Maintenance, 11/12/13 12:10:57 Start Date: 11/12/13 Status: Ordered Nasonex 50 mcg/inh nasal spray 2 sprays, Nares, Both, Daily, # 1 each, 11 Refills, Maintenance, 06/05/19 11:12:57 EDT, [place], 2 sprays Nares, Both Daily,x30 days Start Date: 06/05/19 Stop Date: 05/30/20 Status: Ordered nicotine 14 mg/24 hr transdermal film, extended release 1 patch, Topically, Daily, # 30 patch, 1 Refills, Maintenance, 09/02/20 17:00:00 EST, Patch, [facility] #[id number], 1 patch Topically Daily,x30 days, 164, cm, 06/05/19 10:50:00 EDT, Height Start Date: 09/02/20 Stop Date: 11/01/20 Status: Ordered nicotine 2 mg oral transmucosal lozenge 1 lozenge = 2 mg, By Mouth, Every 2 hours, # 504 lozenge, 0 Refills, Maintenance, 09/02/20 17:00:00EST, [facility] #[id number], Partial fill upon patient request if the [...] 04/28/20 9:38:00 EDT, Route to Pharmacy Electronically, [facility] #[id number], 164, cm, 06/05/19 10:50:00 EDT, Height Start [...]
--- NOTE | 2023-07-15 11:49 | PC.NURSE ---
PT STATES PAIN IS 10/10; PROVIDER NOTIFIED. ORDERS TO FOLLOW.
[2023-07-15] MEDS: Ketorolac Tromethamine 15 MG/ML VIAL IM (12:01)
[2023-07-15 12:12] LABS: Influenza A PCR NEGATIVE (Negative); Influenza B PCR NEGATIVE (Negative); Resp Syncy Virus RNA Qual PCR NEGATIVE (Negative); SARS COV2 PCR INHOUSE NEGATIVE (Negative)
[2023-07-15 12:56] VITALS: BP 110/68; PULSE 75; RESP 18; TEMP 37.2; O2SAT 100
== END 2023-07-15 13:48 | disposition home or self-care (01) ==
PROVIDERS: Physician Assistant Medical; Emergency Provider Emergency Medicine Emergency Medical Services
DX: N39.0 Urinary tract infection, site not specified (principal); R11.2 Nausea with vomiting, unspecified; M54.50 Low back pain, unspecified; R19.7 Diarrhea, unspecified; K57.30 Diverticulosis of large intestine without perforation or abscess without bleeding; Z20.822 Contact with and (suspected) exposure to COVID-19; Z20.828 Contact with and (suspected) exposure to other viral communicable diseases
CPT/HCPCS: 0241U; 36415; 74176; 80053; 81001; 82248; 83690; 85025; 87086; 96372; 99284; J1885

== ENCOUNTER 2023-07-26 12:32 | Emergency (ER) | payer MEDICARE, MEDICAID, SELFPAY ==
[2023-07-26 12:41] VITALS: BP 100/66; PULSE 74; O2SAT 97; BMI 28.2
[2023-07-26 12:43] VITALS: BP 106/61; PULSE 72; RESP 16; TEMP 36.7; O2SAT 96
--- NOTE | 2023-07-26 13:20 | MHC.EDTECH ---
Patient came out of her room and asked what all the screaming was. Staff kindly stated that another patient was in pain. The patient asked if their door could be shut and staff let her know that there is no doors on the rooms. Patient said well were all in pain and shut her curtain. Staff heard the patient talking on the phone about the situation stating that the other patient is acting like she got shot in the face. RN aware.
--- NOTE | 2023-07-26 13:34 | PC.NURSE ---
20gIV placed in left AC w/o difficulty - labs drawn and sent to lab.
[2023-07-26 13:37] LABS: Hematocrit 39.4 % (37.0-47.0); Hemoglobin 12.8 g/dl (12.0-16.0); Mean Corpuscular HGB Conc 32.5 g/dl (31.0-35.0); Mean Corpuscular Hemoglobin 29.3 pg (27.0-33.0); Mean Corpuscular Volume 90.2 fL (80.0-98.0); Mean Platelet Volume 10.3 fL (9.4-12.3); Platelet Count 663 X10*3/uL (160-400); Red Blood Count 4.37 X10*6/uL (4.20-5.50); Red Cell Distribution Width 15.8 % (11.0-16.0); White Blood Count 12.7 X10*3/uL (4.8-10.8)
--- NOTE | 2023-07-26 14:32 | ECG_ITS ---
Test Reason : DIZZINESS Blood Pressure : / mmHG Vent. Rate : 069 BPM Atrial Rate : 069 BPM P-R Int : 186 ms QRS Dur : 082 ms QT Int : 392 ms P-R-T Axes : 062 062 -07 degrees QTc Int : 420 ms Normal sinus rhythm RSR' or QR pattern in V1 suggests right ventricular conduction delay Nonspecific T wave abnormality Abnormal ECG When compared with ECG of 21-MAR-2019 17:10, Inverted T waves have replaced nonspecific T wave abnormality in Inferior leads Nonspecific T wave abnormality now evident in Anterolateral leads Referred By: Demetrius Davis Electronically Signed By:AUGUSTINA LINCOLN MD
--- NOTE | 2023-07-26 14:36 | ED.GENADULT ---
HPI - General Adult General Chief complaint: Dizziness Stated complaint: DIZZY,LOW BP 98/64 PER EMS Time Seen by Provider: 07/26/23 14:15 History of Present Illness HPI narrative: The patient is a 57-year-old woman who comes to emergency room from her doctor's office because of low blood pressure readings. She was sent here by ambulance from her doctor's office. She had a scheduled appointment with her doctor this morning as a follow-up to an emergency room visit at [facility] in [place] sometime last week. The patient is a very vague historian and has trouble describing exactly why she went to the emergency room including consent. She says that she was diagnosed with a possible urinary tract infection and was discharged with antibiotics and also with oxycodone. Hoang took a couple of days of the antibiotic. She did not complete the course. She did use some of the narcotic medications at home over the last several days. She has been feeling dizzy for several days. Says that she was told that she had a low-grade fever when she was at [facility] but does not necessarily know that she had other fevers. She says that she had been having diarrhea prior to the ER visit but has not had any recent diarrhea. She is not having any ongoing dysuria or urinary frequency or urgency. No vomiting. No headache. No chest pain. Related Data Previous Rx's Medication Instructions Recorded amoxicillin 875 mg-potassium 1 tab PO BID 7 days #14 tabs 07/15/23 clavulanate 125 mg tablet loperamide 2 mg capsule (Imodium 2 mg PO QID PRN loose stool #7 caps 07/15/23 A-D) Allergies Allergy/AdvReac Type Severity Reaction Status Date / Time morphine [MORPHINE] Allergy Intermediate INVOLUNTARY Verified 07/26/23 12:40 SPASMS Review of Systems Review of Systems: Yes all other systems are reviewed and are negative [facility] Social History Smoked in Last 30 Days: Yes Use of substances other than those prescribed or required for medical reasons: No Advance Directives: No Advance Directives Information Provided: Yes Patient : No Physical Exam ED Vital Signs: Vital Signs - 24 hr 07/26/23 12:43 07/26/23 14:37 07/26/23 16:40 Temperature 98.0 F 98.2 F 98.1 F Pulse Rate 72 72 65 Respiratory Rate 16 18 20 Blood Pressure 106/61 103/70 106/61 Pulse Oximetry 96 100 Oxygen Delivery Method Room Air BMI result Body Mass Index 28.2 Const Other: The patient is awake and alert. She looks tired but not in acute distress. She does not seem in pain or respiratory difficulty. She has a slightly vague affect but is pleasant cooperative. HENMT Other: Face symmetrical. Mucous membranes look somewhat dry. Eyes Other: Pupils are round equal, conjunctiva clear, no scleral icterus Neck Other: No adenopathy, moving her neck easily. Resp Other: Breath sounds are clear and equal Cardio Other: The patient has a regular rate and rhythm with no murmur. GI Other: The abdomen is soft and nontender Skin Other: The skin is dry and unremarkable. Neuro Other: The patient is awake and alert. She is a vague historian but she is not disoriented. Face is symmetrical. No dysarthria or aphasia. She moves her extremities symmetrically. No obvious focal deficits. Extrem Other: No peripheral edema. Moving her extremities easily. Medications Administered Discontinued Medications Generic Name Dose Route Start Last Admin Trade Name Freq PRN Reason Stop Dose Admin Sodium Chloride 1,000 mls @ 999 mls/hr 07/26/23 14:45 07/26/23 16:26 Ns IV 07/26/23 15:45 Infused .Q1H1M PETER Infusion Sodium Chloride 1,000 mls @ 999 mls/hr 07/26/23 16:45 07/26/23 16:38 Ns IV 07/26/23 17:45 999 mls/hr .Q1H1M PETER Administration Medical Decision Making Medical Decision Making [facility] Narrative: Patient was sent here from her primary care provider's office. The patient had an appointment as part of follow-up from a visit to the emergency room at [facility] 1 week ago. She had presented to the emergency room at that time with a complaint of abdominal pain, diarrhea, nausea, and vomiting. Records from hospital indicate that she had a CT scan that showed proctocolitis. The patient's recollection is that she was told she had UTI. She says that she was prescribed antibiotics that she took for a few days but she does not think she completed the course. She also says that she was prescribed oxycodone. Patient says that her diarrhea has resolved. She has no significant ongoing abdominal pain. She has been eating. Patient's abdominal exam today seems benign. Her labs today show a white count of 12.4, hemoglobin of 12.3, with a platelet count of 634. Her differential on her white count is normal with 53% neutrophils and 33% lymphocytes. She has a normal C reactive protein at 0.36. Urinalysis is normal. She has no signs of infection. She has no ketones. Her lithium level is normal. Chemistries are unremarkable. The patient was given 2 L of IV saline. She seemed stable. Her blood pressures were ultimately 106/61 with a heart rate of 65. She was afebrile. She was feeling better and requested discharge. I am not finding any definite acute medical problem requiring additional treatment and therefore she will be discharged. Lab Data 07/26/23 15:07 07/26/23 15:07 Labs: Lab Results 07/26/23 07/26/23 07/26/23 Range/Units 13:31 13:31 13:31 WBC 12.7 H (4.8-10.8) X10*3/uL RBC 4.37 (4.20-5.50) X10*6/uL Hgb 12.8 (12.0-16.0) g/dl Hct 39.4 (37.0-47.0) % MCV 90.2 (80.0-98.0) fL MCH 29.3 (27.0-33.0) pg MCHC 32.5 (31.0-35.0) g/dl RDW 15.8 (11.0-16.0) % Plt Count 663 H D (160-400) X10*3/uL MPV 10.3 (9.4-12.3) fL Immature Gran % (Auto) (0.0-0.4) % Neut % (Auto) (45-73) % Lymph % (Auto) (20-40) % [place] % (Auto) (2-11) % Eos % (Auto) (0-4) % Baso % (Auto) (0-2) % Lymph # (Auto) (1.2-4.9) X10*3/uL [place] # (Auto) (0.1-1.2) X10*3/uL Eos # (Auto) (0.0-0.4) X10*3/uL Baso # (Auto) (0.0-0.2) X10*3/uL Abs Immat Gran (auto) (0.00-0.03) X10*3/uL Absolute Neuts (auto) (2.0-8.3) x10*3/uL Absolute Nucleated RBC 0.000 (0.0-0.012) X10*3/uL Nucleated RBC % (auto) 0.0 (0.0-0.2) /100WBC VBG pH (7.32-7.43) VBG pCO2 mmHg VBG pO2 mmHg VBG HCO3 (22-26) mmol/L VBG O2 Saturation % VBG Base Excess mmol/L Sodium Cancelled Cancelled Potassium Cancelled Cancelled Chloride Cancelled Carbon Dioxide Anion Gap BUN Creatinine Estim Creat Clear Calc Estimated GFR Random Glucose Calcium Magnesium (1.6-2.6) mg/dL Total Bilirubin Direct Bilirubin (0.0-0.5) mg/dL AST ALT Alkaline Phosphatase C-Reactive Protein (< or = 0.50) mg/dL Total Protein Albumin Urine Color Urine Appearance Urine pH (5.0-9.0) Ur Specific [place] (1.005-1.025) Urine Protein (Neg-Trace) mg/dL Urine Glucose (UA) (Negative) mg/dL Urine Ketones (Negative) mg/dL Urine Blood (Negative) Urine Nitrite (Negative) Ur Leukocyte Esterase (Negative) Urine Opiates Screen (Not Detect) Urine Fentanyl Screen (Not Detect) Ur Barbiturates Screen (Not Detect) Ur Phencyclidine Scrn (Not Detect) Ur Amphetamines Screen (Not Detect) U Benzodiazepines Scrn (Not Detect) [place] (0.60-1.20) mmol/L Urine Cocaine Screen (Not Detect) U Marijuana (THC) Screen (Not Detect) Ethyl Alcohol mg/dL 07/26/23 07/26/23 07/26/23 Range/Units 13:31 13:31 13:31 WBC (4.8-10.8) X10*3/uL RBC (4.20-5.50) X10*6/uL Hgb (12.0-16.0) g/dl Hct (37.0-47.0) % MCV (80.0-98.0) fL MCH (27.0-33.0) pg MCHC (31.0-35.0) g/dl RDW (11.0-16.0) % Plt Count (160-400) X10*3/uL MPV (9.4-12.3) fL Immature Gran % (Auto) (0.0-0.4) % Neut % (Auto) (45-73) % Lymph % (Auto) (20-40) % [place] % (Auto) (2-11) % Eos % (Auto) (0-4) % Baso % (Auto) (0-2) % Lymph # (Auto) (1.2-4.9) X10*3/uL [place] # (Auto) (0.1-1.2) X10*3/uL Eos # (Auto) (0.0-0.4) X10*3/uL Baso # (Auto) (0.0-0.2) X10*3/uL Abs Immat Gran (auto) (0.00-0.03) X10*3/uL Absolute Neuts (auto) (2.0-8.3) x10*3/uL Absolute Nucleated RBC (0.0-0.012) X10*3/uL Nucleated RBC % (auto) (0.0-0.2) /100WBC VBG pH (7.32-7.43) VBG pCO2 mmHg VBG pO2 mmHg VBG HCO3 (22-26) mmol/L VBG O2 Saturation % VBG Base Excess mmol/L Sodium Potassium Chloride Cancelled Carbon Dioxide Cancelled Cancelled Anion Gap Cancelled Cancelled BUN Cancelled Creatinine Estim Creat Clear Calc Estimated GFR Random Glucose Calcium Magnesium (1.6-2.6) mg/dL Total Bilirubin Direct Bilirubin (0.0-0.5) mg/dL AST ALT Alkaline Phosphatase C-Reactive Protein (< or = 0.50) mg/dL Total Protein Albumin Urine Color Urine Appearance Urine pH (5.0-9.0) Ur Specific [place] (1.005-1.025) Urine Protein (Neg-Trace) mg/dL Urine Glucose (UA) (Negative) mg/dL Urine Ketones (Negative) mg/dL Urine Blood (Negative) Urine Nitrite (Negative) Ur Leukocyte Esterase (Negative) Urine Opiates Screen (Not Detect) Urine Fentanyl Screen (Not Detect) Ur Barbiturates Screen (Not Detect) Ur Phencyclidine Scrn (Not Detect) Ur Amphetamines Screen (Not Detect) U Benzodiazepines Scrn (Not Detect) [place] (0.60-1.20) mmol/L Urine Cocaine Screen (Not Detect) U Marijuana (THC) Screen (Not Detect) Ethyl Alcohol mg/dL 07/26/23 07/26/23 07/26/23 Range/Units 13:31 13:31 13:31 WBC (4.8-10.8) X10*3/uL RBC (4.20-5.50) X10*6/uL Hgb (12.0-16.0) g/dl Hct (37.0-47.0) % MCV (80.0-98.0) fL MCH (27.0-33.0) pg MCHC (31.0-35.0) g/dl RDW (11.0-16.0) % Plt Count (160-400) X10*3/uL MPV (9.4-12.3) fL Immature Gran % (Auto) (0.0-0.4) % Neut % (Auto) (45-73) % Lymph % (Auto) (20-40) % [place] % (Auto) (2-11) % Eos % (Auto) (0-4) % Baso % (Auto) (0-2) % Lymph # (Auto) (1.2-4.9) X10*3/uL [place] # (Auto) (0.1-1.2) X10*3/uL Eos # (Auto) (0.0-0.4) X10*3/uL Baso # (Auto) (0.0-0.2) X10*3/uL Abs Immat Gran (auto) (0.00-0.03) X10*3/uL Absolute Neuts (auto) (2.0-8.3) x10*3/uL Absolute Nucleated RBC (0.0-0.012) X10*3/uL Nucleated RBC % (auto) (0.0-0.2) /100WBC VBG pH (7.32-7.43) VBG pCO2 mmHg VBG pO2 mmHg VBG HCO3 (22-26) mmol/L VBG O2 Saturation % VBG Base Excess mmol/L Sodium Potassium Chloride Carbon Dioxide Anion Gap BUN Cancelled Creatinine Cancelled Cancelled Estim Creat Clear Calc Cancelled Cancelled Estimated GFR Cancelled Random Glucose Calcium Magnesium (1.6-2.6) mg/dL Total Bilirubin Direct Bilirubin (0.0-0.5) mg/dL AST ALT Alkaline Phosphatase C-Reactive Protein (< or = 0.50) mg/dL Total Protein Albumin Urine Color Urine Appearance Urine pH (5.0-9.0) Ur Specific [place] (1.005-1.025) Urine Protein (Neg-Trace) mg/dL Urine Glucose (UA) (Negative) mg/dL Urine Ketones (Negative) mg/dL Urine Blood (Negative) Urine Nitrite (Negative) Ur Leukocyte Esterase (Negative) Urine Opiates Screen (Not Detect) Urine Fentanyl Screen (Not Detect) Ur Barbiturates Screen (Not Detect) Ur Phencyclidine Scrn (Not Detect) Ur Amphetamines Screen (Not Detect) U Benzodiazepines Scrn (Not Detect) [place] (0.60-1.20) mmol/L Urine Cocaine Screen (Not Detect) U Marijuana (THC) Screen (Not Detect) Ethyl Alcohol mg/dL 07/26/23 07/26/23 07/26/23 Range/Units 13:31 13:31 13:31 WBC (4.8-10.8) X10*3/uL RBC (4.20-5.50) X10*6/uL Hgb (12.0-16.0) g/dl Hct (37.0-47.0) % MCV (80.0-98.0) fL MCH (27.0-33.0) pg MCHC (31.0-35.0) g/dl RDW (11.0-16.0) % Plt Count (160-400) X10*3/uL MPV (9.4-12.3) fL Immature Gran % (Auto) (0.0-0.4) % Neut % (Auto) (45-73) % Lymph % (Auto) (20-40) % [place] % (Auto) (2-11) % Eos % (Auto) (0-4) % Baso % (Auto) (0-2) % Lymph # (Auto) (1.2-4.9) X10*3/uL [place] # (Auto) (0.1-1.2) X10*3/uL Eos # (Auto) (0.0-0.4) X10*3/uL Baso # (Auto) (0.0-0.2) X10*3/uL Abs Immat Gran (auto) (0.00-0.03) X10*3/uL Absolute Neuts (auto) (2.0-8.3) x10*3/uL Absolute Nucleated RBC (0.0-0.012) X10*3/uL Nucleated RBC % (auto) (0.0-0.2) /100WBC VBG pH (7.32-7.43) VBG pCO2 mmHg VBG pO2 mmHg VBG HCO3 (22-26) mmol/L VBG O2 Saturation % VBG Base Excess mmol/L Sodium Potassium Chloride Carbon Dioxide Anion Gap BUN Creatinine Estim Creat Clear Calc Estimated GFR Cancelled Random Glucose Cancelled Cancelled Calcium Cancelled Cancelled Magnesium (1.6-2.6) mg/dL Total Bilirubin Cancelled Direct Bilirubin (0.0-0.5) mg/dL AST Cancelled ALT Cancelled Alkaline Phosphatase Cancelled C-Reactive Protein (< or = 0.50) mg/dL Total Protein Cancelled Albumin Cancelled Urine Color Urine Appearance Urine pH (5.0-9.0) Ur Specific [place] (1.005-1.025) Urine Protein (Neg-Trace) mg/dL Urine Glucose (UA) (Negative) mg/dL Urine Ketones (Negative) mg/dL Urine Blood (Negative) Urine Nitrite (Negative) Ur Leukocyte Esterase (Negative) Urine Opiates Screen (Not Detect) Urine Fentanyl Screen (Not Detect) Ur Barbiturates Screen (Not Detect) Ur Phencyclidine Scrn (Not Detect) Ur Amphetamines Screen (Not Detect) U Benzodiazepines Scrn (Not Detect) [place] (0.60-1.20) mmol/L Urine Cocaine Screen (Not Detect) U Marijuana (THC) Screen (Not Detect) Ethyl Alcohol mg/dL 07/26/23 07/26/23 07/26/23 Range/Units 15:07 15:12 17:34 WBC 12.4 H (4.8-10.8) X10*3/uL RBC 4.19 L (4.20-5.50) X10*6/uL Hgb 12.3 (12.0-16.0) g/dl Hct 37.8 (37.0-47.0) % MCV 90.2 (80.0-98.0) fL MCH 29.4 (27.0-33.0) pg MCHC 32.5 (31.0-35.0) g/dl RDW 15.7 (11.0-16.0) % Plt Count 634 H (160-400) X10*3/uL MPV 10.0 (9.4-12.3) fL Immature Gran % (Auto) 1.0 H (0.0-0.4) % Neut % (Auto) 53.8 (45-73) % Lymph % (Auto) 33.7 (20-40) % [place] % (Auto) 8.8 (2-11) % Eos % (Auto) 2.3 (0-4) % Baso % (Auto) 0.4 (0-2) % Lymph # (Auto) 4.2 (1.2-4.9) X10*3/uL [place] # (Auto) 1.1 (0.1-1.2) X10*3/uL Eos # (Auto) 0.3 (0.0-0.4) X10*3/uL Baso # (Auto) 0.1 (0.0-0.2) X10*3/uL Abs Immat Gran (auto) 0.13 H (0.00-0.03) X10*3/uL Absolute Neuts (auto) 6.7 (2.0-8.3) x10*3/uL Absolute Nucleated RBC 0.000 (0.0-0.012) X10*3/uL Nucleated RBC % (auto) 0.0 (0.0-0.2) /100WBC VBG pH 7.37 (7.32-7.43) VBG pCO2 46 mmHg VBG pO2 32 mmHg VBG HCO3 27 H (22-26) mmol/L VBG O2 Saturation 50.0 % VBG Base Excess 1.5 mmol/L Sodium 141 Potassium 4.4 Chloride 112 H Carbon Dioxide 25 Anion Gap 8 L BUN 8 L Creatinine 0.79 Estim Creat Clear Calc 83.5 Estimated GFR > 60 Random Glucose 100 Calcium 9.3 D Magnesium 2.2 (1.6-2.6) mg/dL Total Bilirubin 0.3 Direct Bilirubin 0.1 (0.0-0.5) mg/dL AST 21 ALT 37 H Alkaline Phosphatase 113 C-Reactive Protein 0.36 (< or = 0.50) mg/dL Total Protein 6.4 L Albumin 3.6 Urine Color Yellow Urine Appearance Clear Urine pH 7.5 (5.0-9.0) Ur Specific [place] 1.010 (1.005-1.025) Urine Protein Negative (Neg-Trace) mg/dL Urine Glucose (UA) Negative (Negative) mg/dL Urine Ketones Negative (Negative) mg/dL Urine Blood Negative (Negative) Urine Nitrite Negative (Negative) Ur Leukocyte Esterase Negative (Negative) Urine Opiates Screen Not Detected (Not Detect) Urine Fentanyl Screen Not Detected (Not Detect) Ur Barbiturates Screen Not Detected (Not Detect) Ur Phencyclidine Scrn Not Detected (Not Detect) Ur Amphetamines Screen Not Detected (Not Detect) U Benzodiazepines Scrn Not Detected (Not Detect) [place] 0.62 (0.60-1.20) mmol/L Urine Cocaine Screen Not Detected (Not Detect) U Marijuana (THC) Screen Not Detected (Not Detect) Ethyl Alcohol < 10 mg/dL Discharge Plan Discharge Clinical Impression: Light-headedness Patient Disposition: Home, Self-Care Additional Instructions: Your testing in the emergency room today seems reassuring. I do not think there is an indication for additional antibiotics right now. If your urine testing suggest that you might need antibiotics we will contact you. Otherwise please follow-up with your regular doctor soon to discuss how you are doing further. Return to the emergency room if you feel significantly worse. Prescriptions: No Action amoxicillin-pot clavulanate 875-125 mg tablet 1 tab PO BID 7 Days Qty: 14 0RF loperamide [Imodium A-D] 2 mg capsule 2 mg PO QID PRN (Reason: loose stool) Qty: 7 0RF Referrals: Jaguar Kwok MD [Primary Care Provider] - Interventions: ED Discharge Assessment Last Done: 07/26/23 17:39 Discharge Date/Time: 07/26/23 17:39
[2023-07-26 14:37] VITALS: BP 103/70; PULSE 72; RESP 18; TEMP 36.8; O2SAT 100
[2023-07-26] MEDS: 0.9 % Sodium Chloride 1,000 ML 999 ML IV ×2 (14:54→16:38)
--- NOTE | 2023-07-26 14:55 | PC.NURSE ---
medication administered per provider order. tech obtained ekg/obtaining labs at this time. pt still verbalizing dizziness at this time. denies pain. respirations remain even and unlabored. call rouse placed within reach.
[2023-07-26 15:12] LABS: MANUAL DIFF FLAG NO
[2023-07-26 15:14] LABS: Basophils Absolute Auto 0.1 X10*3/uL (0.0-0.2); Basophils Percent Auto 0.4 % (0-2); Eosinophils Absolute Auto 0.3 X10*3/uL (0.0-0.4); Eosinophils Percent Auto 2.3 % (0-4); Hematocrit 37.8 % (37.0-47.0); Hemoglobin 12.3 g/dl (12.0-16.0); Imm Gran Abs Auto 0.13 X10*3/uL (0.00-0.03); Lymphocytes Absolute Auto 4.2 X10*3/uL (1.2-4.9); Lymphocytes Percent Auto 33.7 % (20-40); Mean Corpuscular HGB Conc 32.5 g/dl (31.0-35.0); Mean Corpuscular Hemoglobin 29.4 pg (27.0-33.0); Mean Corpuscular Volume 90.2 fL (80.0-98.0); Monocytes Absolute Auto 1.1 X10*3/uL (0.1-1.2); Monocytes Percent Auto 8.8 % (2-11); Neutrophils Absolute Auto 6.7 x10*3/uL (2.0-8.3); Neutrophils Percent Auto 53.8 % (45-73); Platelet Count 634 X10*3/uL (160-400); Red Blood Count 4.19 X10*6/uL (4.20-5.50); Red Cell Distribution Width 15.7 % (11.0-16.0); White Blood Count 12.4 X10*3/uL (4.8-10.8)
[2023-07-26 15:17] LABS: VBG Base Excess 1.5 mmol/L; VBG HCO3 27 mmol/L (22-26); VBG pCO2 46 mmHg; VBG pH 7.37 (7.32-7.43); VBG pO2 32 mmHg
[2023-07-26 15:18] LABS: Venous Blood Gas Refer to POC result
[2023-07-26 15:24] LABS: Lithium 0.62 mmol/L (0.60-1.20)
[2023-07-26 15:31] LABS: Alanine Aminotransferase 37 U/L (0-31); Albumin Level 3.6 g/dL (3.5-5.0); Alkaline Phosphatase 113 U/L (39-117); Anion Gap 8 (12-20); Aspartate Amino Transferase 21 U/L (5-31); Bilirubin Direct 0.1 mg/dL (0.0-0.5); Bilirubin Total 0.3 mg/dL (0.0-1.0); Blood Urea Nitrogen 8 mg/dL (9-16); C Reactive Protein 0.36 mg/dL (< or = 0.50); Calcium 9.3 mg/dL (8.4-10.2); Carbon Dioxide 25 mmol/L (22-29); Chloride 112 mmol/L (96-108); Creatinine Clr Calc Pharmacy 83.5; Estimated Glomerular Filt Rate > 60; Ethanol < 10 mg/dL; Glucose Random 100 mg/dL (60-115); Magnesium 2.2 mg/dL (1.6-2.6); Potassium 4.4 mmol/L (3.3-5.1); Sodium 141 mmol/L (135-145); Total Protein 6.4 g/dL (6.5-8.0)
[2023-07-26 16:40] VITALS: BP 106/61; PULSE 65; RESP 20; TEMP 36.7
[2023-07-26 17:43] LABS: Appearance Urine Clear; Color Urine Yellow; Glucose Urine UA Negative (Negative); Leukocyte Esterase Urine Negative (Negative); Nitrite Urine Negative (Negative); PH 7.5 (5.0-9.0); Urine Blood Negative (Negative); Urine Ketones Negative (Negative); Urine Protein Negative (Neg-Trace)
[2023-07-26 18:00] LABS: Amphetamine Screen Urine Not Detected (Not Detect); Barbiturates, Urine Not Detected (Not Detect); Benzodiazepines Screen Urine Not Detected (Not Detect); Cannabinoid Screen Urine Not Detected (Not Detect); Cocaine Screen Urine Not Detected (Not Detect); Fentanyl, urine Not Detected (Not Detect); Opiate Screen Urine Not Detected (Not Detect); Phencyclidine Screen Urine Not Detected (Not Detect)
== END 2023-07-26 17:39 | disposition home or self-care (01) ==
PROVIDERS: Physician Assistant Medical; Emergency Provider Emergency Medicine; PCP Hospitalist
DX: R42 Dizziness and giddiness (principal); R03.1 Nonspecific low blood-pressure reading; R19.7 Diarrhea, unspecified; Z79.899 Other long term (current) drug therapy
CPT/HCPCS: 36415; 80048; 80053; 80076; 80178; 80307; 81003; 82803; 83735; 85025; 85027; 86140; 93005; 96360; 96361; 99284; 99285